=== PATIENT | female | born 1935 | race Caucasian/White ===

== ENCOUNTER → 2018-10-11 12:39 | Outpatient (CLI) | payer MEDICARE, SELFPAY | PROVIDERS: Family Provider Family Medicine; PCP Family Medicine; Visit Provider Family Medicine | DX: M85.88 Other specified disorders of bone density and structure, other site (principal); Z78.0 Asymptomatic menopausal state; Z82.62 Family history of osteoporosis; Z87.891 Personal history of nicotine dependence | CPT/HCPCS: 77080 ==

== ENCOUNTER → 2019-11-08 11:39 | Outpatient (CLI) | payer MEDICARE, SELFPAY ==
[2019-11-13 10:40] LABS: COVID19 Sendout Not Detected
== END ==
PROVIDERS: Family Provider Family Medicine; PCP Family Medicine; Visit Provider Physician Assistant
DX: Z03.818 Encounter for observation for suspected exposure to other biological agents ruled out (principal)
CPT/HCPCS: 87635

== ENCOUNTER 2020-01-23 15:15 | Outpatient (RCR) | payer MEDICARE, OTHER, SELFPAY ==
--- NOTE | 2019-12-13 19:00 | PT.OPPOC ---
Physical, Occupational & Speech Therapy At [facility] Current Diagnoses Pain in left knee (12/13/19) Visit Care Team Role Provider Type Charanjit Craig MD Attending Provider Physician Family Provider Primary Care Provider Referring Provider Specialty: Family Practice Address: [address] [place] [address] [place], [address] Email: [email or web address] Plan Of Care PT-OP-T Assessment and Plan Start: 12/13/19 15:16 Freq: Status: Active Protocol: Document 12/13/19 18:24 [facility] (Rec: 12/13/19 18:30 [facility] [email or web address]) Physical Therapy Assessment Goals Four Impairment Limited walking distance to 2 blocks Usp Goal (LTG) Amy is able to ambulate 1 mile from her house to [facility] safely and without increased pain LTG Duration 8 weeks Three Impairment Antalgic gait pattern with wide base of support and trendelenburg gait Document Imaging Specialist Goal (LTG) Amy has improved strength of the left hip and improved gait pattern putting her at decreased risk for falls LTG Duration 8 weeks Two Impairment decreased strength left knee Usp Goal (LTG) Amy tests 4/5 or better for left knee MMT LTG Duration 8 weeks One Impairment Decreased left knee ROM into extension Short Term Goal (STG) Amy demonstrates full knee ROM into extension of her left knee STG Duration 4 weeks Assessment Summary Assessment Amy presents to physical therapy today s/p left intra- articular knee BMAC injection on 11/29/19. She notes her pain levels have been reduced since her injection and now rates her pain 3-5/10. She reports she hasn't started any ROM exercises for her left knee yet so seeks guidance with physical therapy. At this point she is limited with walking to only a few blocks. She feels unsteady with her gait. Her goal is to be able to walk to [employer] [place] which is a mile away from her house. She also has extreme difficulty with stairs and would like to make this easier to perform. With examination today Amy lacks 5 degrees knee extension , she test 3/5 MMT for left knee strength, 2+/5 for hip extension and abduction. Amy ambulates with a wide base of support and a single point cane. She demonstrates a trendelenburg gait. Treatment will include knee ROM and strengthening exercises, hip strengthening exercises, gait and balance training. Amy is a good candidate for PT Physical Therapy Plan Frequency and Duration Frequency of Treatment 2x/Week Duration of Treatment 8 weeks Plan of Care Start Date 12/13/19 Plan of Care End Date 02/07/20 Therapeutic Interventions Therapeutic Interventions Balance Training,Home Exercise Program,Patient/Caregiver Education,Self-Care/Home Management,Therapeutic Exercises Modalities Cold Pack/Ice Massage Next Visit Focus/Plan Next Note Type Treatment Note Next Visit Plan begin on biodex for warm up, review exercises, STM left quad, begin balance training and gluteus medius stabilization Plan of Care Dates Plan of Care Start Date 12/13/19 Plan of Care End Date 02/07/20 Electronically Signed by: Olga Vásquez, PT 12/18/19 0831 Please Sign and Return: I have reviewed this Plan of Care and certify that the skilled therapy services above are required to meet the patient?s needs. Physician Signature Date Printed Name and Credentials Clinical Instructor Signature Printed Name and Credentials
--- NOTE | 2019-12-13 19:00 | PT.OIE ---
Current Diagnoses Pain in left knee (12/13/19) Visit Care Team Role Provider Type Charanjit Craig MD Attending Provider Physician Family Provider Primary Care Provider Referring Provider Specialty: Family Practice Address: [address] [address], [facility] [place], [facility] Email: [email or web address] Physical Therapy Initial Evaluation PT-OP-A Visit Information Start: 12/13/19 15:16 Freq: Status: Active Protocol: Document 12/13/19 15:16 [facility] (Rec: 12/13/19 15:28 [facility] [id number]) Out-Patient Physical Therapy Visit Information Visit Information Visit Type Initial Evaluation Visit Start Time 15:15 Visit Stop Time 16:00 Total Visit Minutes 45 Visit Number 1 Evaluation Information Evaluation Date 12/13/19 PT-OP-B Current Condition Start: 12/13/19 15:16 Freq: Status: Active Protocol: Document 12/13/19 15:16 [facility] (Rec: 12/13/19 15:28 [facility] [id number]) Current Condition History of Current Condition Onset Date 10 years ago Prior Treatments and Tests Stem cell injections November 28. Dr Wood. Stem cells were harvested from her left pelvis . She reports her knee feels better than it was before, now not using medication but using heat. Pain right now is a 3-5/10. Prior to the injection is was a 6-7/10. Uses a cane to ambulate. Her goal is to climb steps. She has 15 steps, her son is home now but she wants to get back to stairs. There is two railings. Walks about 3 blocks at this time but would like to walk farther. Has difficulty running the vacuum reed cleaner right now. Pt has a history of left sided inguinal hernia. She is carful about not lifting. Treatment Goals Patient/Caregiver Goals Carols goals include improved strength, ROM and pain control of her left knee. She would like to be able to walk a mile to her [employer] without pain Current Functional Impairments (Reported) Functional Limitations- Mobility/Gait limited distance with walking to only a few blocks, extreme difficulty with stairs, standing for a hour, and with lifting objects from the floor PT-OP-G Mobility & Gait Start: 12/13/19 15:16 Freq: Status: Active Protocol: Document 12/13/19 15:15 [facility] (Rec: 12/18/19 08:30 [facility] [email or web address]) OP Gait Assessment Assistive Devices Assistive Device Straight Cane Gait Deviations General Gait Pattern Antalgic Factors Limiting Gait Function Factors Limiting Gait Function Decreased Strength,Poor Balance Comments Gait Comments gluteus medius drop with gait and wide base of support PT-OP-K Range of Motion Start: 12/13/19 15:16 Freq: Status: Active Protocol: Document 12/13/19 15:15 [facility] (Rec: 12/18/19 08:29 [facility] [email or web address]) Knee Goniometric Range of Motion Knee Left Knee ROM WFL No Extension Active (degrees) 5 PT-OP-M Strength Start: 12/13/19 15:16 Freq: Status: Active Protocol: Document 12/13/19 18:14 [facility] (Rec: 12/13/19 18:23 [facility] [email or web address]) Hip Strength Hip Manual Muscle Testing Right Flexion (L2) 4 Good Abduction 3 Fair Left Flexion (L2) 3 Fair Extension (S1) 3 Fair Abduction 2+ Poor+ Knee Strength Knee Manual Muscle Testing Right Flexion (S2) 4 Good Extension (L3) 4 Good Left Flexion (S2) 3 Fair Extension (L3) 3 Fair PT-OP-Q Treatments Start: 12/13/19 15:35 Freq: Status: Active Protocol: Document 12/13/19 15:35 [facility] (Rec: 12/13/19 15:42 [facility] [id number]) Cardio Equipment Recumbent Elliptical ([employer]s) Duration (Minutes) 5 Resistance 0 Therapeutic Exercises Supine Exercises 1 Supine Exercise Name single knee to chest with active hamstring stretch Reps/Minutes x 5 times each side. single knee to ches Reps/Minutes x 30 seconds hold heel slides Reps/Minutes x 10 reps PT-OP-T Assessment and Plan Start: 12/13/19 15:16 Freq: Status: Active Protocol: Document 12/13/19 18:24 [facility] (Rec: 12/13/19 18:30 [facility] [email or web address]) Physical Therapy Assessment Goals Four Impairment Limited walking distance to 2 blocks Artificial Inseminator Goal (LTG) Amy is able to ambulate 1 mile from her house to [facility] safely and without increased pain LTG Duration 8 weeks Three Impairment Antalgic gait pattern with wide base of support and trendelenburg gait Artificial Inseminator Goal (LTG) Amy has improved strength of the left hip and improved gait pattern putting her at decreased risk for falls LTG Duration 8 weeks Two Impairment decreased strength left knee Penitentiary Goal (LTG) Amy tests 4/5 or better for left knee MMT LTG Duration 8 weeks One Impairment Decreased left knee ROM into extension Short Term Goal (STG) Amy demonstrates full knee ROM into extension of her left knee STG Duration 4 weeks Assessment Summary Assessment Amy presents to physical therapy today s/p left intra- articular knee BMAC injection on 11/29/19. She notes her pain levels have been reduced since her injection and now rates her pain 3-5/10. She reports she hasn't started any ROM exercises for her left knee yet so seeks guidance with physical therapy. At this point she is limited with walking to only a few blocks. She feels unsteady with her gait. Her goal is to be able to walk to [employer] which is a mile away from her house. She also has extreme difficulty with stairs and would like to make this easier to perform. With examination today Amy lacks 5 degrees knee extension , she test 3/5 MMT for left knee strength, 2+/5 for hip extension and abduction. Amy ambulates with a wide base of support and a single point cane. She demonstrates a trendelenburg gait. Treatment will include knee ROM and strengthening exercises, hip strengthening exercises, gait and balance training. Amy is a good candidate for PT Physical Therapy Plan Frequency and Duration Frequency of Treatment 2x/Week Duration of Treatment 8 weeks Plan of Care Start Date 12/13/19 Plan of Care End Date 02/07/20 Therapeutic Interventions Therapeutic Interventions Balance Training,Home Exercise Program,Patient/Caregiver Education,Self-Care/Home Management,Therapeutic Exercises Modalities Cold Pack/Ice Massage Next Visit Focus/Plan Next Note Type Treatment Note Next Visit Plan begin on biodex for warm up, review exercises, STM left quad, begin balance training and gluteus medius stabilization
--- NOTE | 2019-12-18 18:56 | PT.OTN ---
Current Diagnoses Pain in left knee (12/18/19) Physical Therapy Treatment Note PT-OP-A Visit Information Start: 12/13/19 15:16 Freq: Status: Active Protocol: Document 12/18/19 18:51 [facility] (Rec: 12/18/19 18:55 [facility] [id number]) Out-Patient Physical Therapy Visit Information Visit Information Visit Type Treatment Note Visit Start Time 11:15 Visit Stop Time 12:00 Total Visit Minutes 45 Visit Number 2 PT-OP-B Current Condition Start: 12/13/19 15:16 Freq: Status: Active Protocol: Document 12/13/19 15:16 [facility] (Rec: 12/13/19 15:28 [facility] [id number]) Current Condition History of Current Condition Onset Date 10 years ago Prior Treatments and Tests Stem cell injections November 28. Dr Wood and Dr Miranda ordered . Stem cells were harvested from her left pelvis . She reports her knee fels better than it was before, now not using medication but using heat. Pain right now is a 3-5/10. Prior to the injection is was a 6-7/10. Uses a cane to ambulate. Her goal is to climb steps. She has 15 steps, her son is home now but she wants to get back to stairs. There is two railings. Walks about 3 blocks at this time but would like to walk farther. Has difficulty running the [employer] right now. Pt has a history of left sided inguinal hernia. She is carful about not lifting. Treatment Goals Patient/Caregiver Goals Carols goals include improved strength, ROM and pain control of her left knee. She would like to be able to walk a mile to her [employer] without pain Current Functional Impairments (Reported) Functional Limitations- Mobility/Gait limited distance with walking to only a few blocks, extreme dificulty with stairs, standing for a hour, and with lifting objects from the floor PT-OP-C Subjective Start: 12/13/19 15:16 Freq: Status: Active Protocol: Document 12/18/19 18:55 [facility] (Rec: 12/18/19 18:56 [facility] [email or web address]) OP-PT Subjective Patient Comments Patient Comments pt reports she has been doing her exercises. She took a fall when she slid off her seated walker this past week onto her buttocks. No c/o pain today Patient Reported Progress Improving PT-OP-G Mobility & Gait Start: 12/13/19 15:16 Freq: Status: Active Protocol: Document 12/13/19 15:15 [facility] (Rec: 12/18/19 08:30 [facility] [email or web address]) OP Gait Assessment Assistive Devices Assistive Device Straight Cane Gait Deviations General Gait Pattern Antalgic Factors Limiting Gait Function Factors Limiting Gait Function Decreased Strength,Poor Balance Comments Gait Comments gluteus medius drop with gait and wide base of support PT-OP-K Range of Motion Start: 12/13/19 15:16 Freq: Status: Active Protocol: Document 12/13/19 15:15 [facility] (Rec: 12/18/19 08:29 [facility] [email or web address]) Knee Goniometric Range of Motion Knee Left Knee ROM WFL No Extension Active (degrees) 5 PT-OP-M Strength Start: 12/13/19 15:16 Freq: Status: Active Protocol: Document 12/13/19 18:14 [facility] (Rec: 12/13/19 18:23 [facility] [email or web address]) Hip Strength Hip Manual Muscle Testing Right Flexion (L2) 4 Good Abduction 3 Fair Left Flexion (L2) 3 Fair Extension (S1) 3 Fair Abduction 2+ Poor+ Knee Strength Knee Manual Muscle Testing Right Flexion (S2) 4 Good Extension (L3) 4 Good Left Flexion (S2) 3 Fair Extension (L3) 3 Fair PT-OP-Q Treatments Start: 12/13/19 15:35 Freq: Status: Active Protocol: Document 12/18/19 18:51 [facility] (Rec: 12/18/19 18:55 [facility] [email or web address]) Cardio Equipment Recumbent Elliptical (Biodex) Duration (Minutes) 5 Resistance 0 Therapeutic Exercises Supine Exercises bridges Supine Exercise Name bridges Reps/Minutes x 10 quads sets Supine Exercise Name quad sets Reps/Minutes x 10 reps 2 Supine Exercise Name iliopsoas stretch in ebony test position 1 Supine Exercise Name single knee to chest with active hamstring stretch Reps/Minutes x 5 times each side. heel slides Reps/Minutes x 10 reps Sidelying Exercises 1 Sidelying Exercise Name clam shells Reps/Minutes 2 x 10 Manual Therapy Treatment Soft Tissue Mobilization 1 Body Location STM over the left quad Comments used the therarollar for STM PT-OP-T Assessment and Plan Start: 12/13/19 15:16 Freq: Status: Active Protocol: Document 12/18/19 18:51 [facility] (Rec: 12/18/19 18:55 [facility] [email or web address]) Physical Therapy Assessment Assessment Summary Assessment good tolerance for ther ex today and improved knee extension to full ROM Physical Therapy Plan Frequency and Duration Frequency of Treatment 2x/Week Duration of Treatment 8 weeks Plan of Care Start Date 12/13/19 Plan of Care End Date 02/07/20
--- NOTE | 2019-12-20 17:37 | PT.OTN ---
Current Diagnoses Pain in left knee (12/20/19) Physical Therapy Treatment Note PT-OP-A Visit Information Start: 12/13/19 15:16 Freq: Status: Active Protocol: Document 12/20/19 17:26 [facility] (Rec: 12/20/19 17:37 [facility] [email or web address]) Out-Patient Physical Therapy Visit Information Visit Information Visit Type Treatment Note Visit Start Time 15:15 Visit Stop Time 16:00 Total Visit Minutes 45 Visit Number 3 PT-OP-B Current Condition Start: 12/13/19 15:16 Freq: Status: Active Protocol: Document 12/13/19 15:16 [facility] (Rec: 12/13/19 15:28 [facility] [id number]) Current Condition History of Current Condition Onset Date 10 years ago Prior Treatments and Tests Stem cell injections November 28. Dr Wood and Dr Miranda ordered . Stem cells were harvested from her left pelvis . She reports her knee fels better than it was before, now not using medication but using heat. Pain right now is a 3-5/10. Prior to the injection is was a 6-7/10. Uses a cane to ambulate. Her goal is to climb steps. She has 15 steps, her son is home now but she wants to get back to stairs. There is two railings. Walks about 3 blocks at this time but would like to walk farther. Has difficulty running the [employer] right now. Pt has a history of left sided inguinal hernia. She is carful about not lifting. Treatment Goals Patient/Caregiver Goals Carols goals include improved strength, ROM and pain control of her left knee. She would like to be able to walk a mile to her adventist without pain Current Functional Impairments (Reported) Functional Limitations- Mobility/Gait limited distance with walking to only a few blocks, extreme dificulty with stairs, standing for a hour, and with lifting objects from the floor PT-OP-C Subjective Start: 12/13/19 15:16 Freq: Status: Active Protocol: Document 12/20/19 17:26 [facility] (Rec: 12/20/19 17:37 [facility] [email or web address]) OP-PT Subjective Patient Comments Patient Comments pt reports she tolerated treatement well last visit. She is more fatigued at this late in the day. PT-OP-G Mobility & Gait Start: 12/13/19 15:16 Freq: Status: Active Protocol: Document 12/13/19 15:15 [facility] (Rec: 12/18/19 08:30 [facility] [email or web address]) OP Gait Assessment Assistive Devices Assistive Device Straight Cane Gait Deviations General Gait Pattern Antalgic Factors Limiting Gait Function Factors Limiting Gait Function Decreased Strength,Poor Balance Comments Gait Comments gluteus medius drop with gait and wide base of support PT-OP-K Range of Motion Start: 12/13/19 15:16 Freq: Status: Active Protocol: Document 12/13/19 15:15 [facility] (Rec: 12/18/19 08:29 [facility] [email or web address]) Knee Goniometric Range of Motion Knee Left Knee ROM WFL No Extension Active (degrees) 5 PT-OP-M Strength Start: 12/13/19 15:16 Freq: Status: Active Protocol: Document 12/13/19 18:14 [facility] (Rec: 12/13/19 18:23 [facility] [email or web address]) Hip Strength Hip Manual Muscle Testing Right Flexion (L2) 4 Good Abduction 3 Fair Left Flexion (L2) 3 Fair Extension (S1) 3 Fair Abduction 2+ Poor+ Knee Strength Knee Manual Muscle Testing Right Flexion (S2) 4 Good Extension (L3) 4 Good Left Flexion (S2) 3 Fair Extension (L3) 3 Fair PT-OP-Q Treatments Start: 12/13/19 15:35 Freq: Status: Active Protocol: Document 12/20/19 17:26 [facility] (Rec: 12/20/19 17:37 [facility] [email or web address]) Cardio Equipment Recumbent Elliptical (Biodex) Duration (Minutes) 5 Resistance 0 Gym Equipment Shuttle Recovery Bilateral Squats Details bilateral squats Resistance 25# Reps/Time 3 x 10 reps Therapeutic Exercises Supine Exercises 3 Supine Exercise Name Manual Hamstring stretch with ankle pumps Reps/Minutes 2 x 30 seconds bridges Supine Exercise Name bridges Reps/Minutes 2 x 10 quads sets Supine Exercise Name quad sets Reps/Minutes x 10 reps left knee Comments with towel under left knee 2 Supine Exercise Name iliopsoas stretch in ebony test position 1 Supine Exercise Name single knee to chest with active hamstring stretch Reps/Minutes x 5 times each side. heel slides Supine Exercise Name heel slides Reps/Minutes x 10 reps Sidelying Exercises 1 Sidelying Exercise Name clam shells Reps/Minutes 2 x 10 Sitting Exercises 1 Sitting Exercise Name seated TKE Reps/Minutes x 15 reps left Standing Exercises 4 Standing Exercise Name step ups on 4 step Comments pt reports pain in left knee after 5 reps so ex stopped 3 Standing Exercise Name single leg balance Reps/Minutes 15 sec x 2 B 2 Standing Exercise Name standing 3 way hip Reps/Minutes x 15 each Comments marches, abduction, hip extension 1 Standing Exercise Name standing ONDINA calf stretch Reps/Minutes static and dynamic Manual Therapy Treatment Soft Tissue Mobilization 1 Body Location STM over the left quad Comments used the therarollar for STM PT-OP-T Assessment and Plan Start: 12/13/19 15:16 Freq: Status: Active Protocol: Document 12/20/19 17:26 [facility] (Rec: 12/20/19 17:37 [facility] [email or web address]) Physical Therapy Assessment Assessment Summary Assessment Pt was fatigued with appointment being later in the day. She is tolerating all the exercises and stretching for her left knee really well. Her goal is to increase her walking distance to a mile and be able to climb up the stairs in her adventist. There is no rail with the stairs in the adventist. She has tight hip flexors B and I am trying to help her loosen these to help her gait and balance. Step ups were attempted today but made her left knee too sore so they were stopped Physical Therapy Plan Frequency and Duration Frequency of Treatment 2x/Week Duration of Treatment 8 weeks Plan of Care Start Date 12/13/19 Plan of Care End Date 02/07/20 Therapeutic Interventions Therapeutic Interventions Balance Training,Home Exercise Program,Patient/Caregiver Education,Self-Care/Home Management,Therapeutic Exercises Modalities Cold Pack/Ice Massage Next Visit Focus/Plan Next Note Type Treatment Note Next Visit Plan continue to progress left knee strengthening, stretching the quad, hamstrings, and hip flexors, gait and balance training
--- NOTE | 2019-12-27 14:49 | PT.OTN ---
Current Diagnoses Pain in left knee (12/27/19) Physical Therapy Treatment Note PT-OP-A Visit Information Start: 12/13/19 15:16 Freq: Status: Active Protocol: Document 12/27/19 12:47 [facility] (Rec: 12/27/19 12:47 [facility] [email or web address]) Out-Patient Physical Therapy Visit Information Visit Information Visit Type Treatment Note Visit Start Time 12:45 Visit Stop Time 13:30 Total Visit Minutes 45 Visit Number 4 Evaluation Information Evaluation Date 12/13/19 PT-OP-B Current Condition Start: 12/13/19 15:16 Freq: Status: Active Protocol: Document 12/13/19 15:16 [facility] (Rec: 12/13/19 15:28 [facility] [id number]) Current Condition History of Current Condition Onset Date 10 years ago Prior Treatments and Tests Stem cell injections November 28. Dr Wood and Dr Miranda ordered . Stem cells were harvested from her left pelvis . She reports her knee fels better than it was before, now not using medication but using heat. Pain right now is a 3-5/10. Prior to the injection is was a 6-7/10. Uses a cane to ambulate. Her goal is to climb steps. She has 15 steps, her son is home now but she wants to get back to stairs. There is two railings. Walks about 3 blocks at this time but would like to walk farther. Has difficulty running the [employer] right now. Pt has a history of left sided inguinal hernia. She is carful about not lifting. Treatment Goals Patient/Caregiver Goals [place] goals include improved strength, ROM and pain control of her left knee. She would like to be able to walk a mile to her confucianist without pain Current Functional Impairments (Reported) Functional Limitations- Mobility/Gait limited distance with walking to only a few blocks, extreme dificulty with stairs, standing for a hour, and with lifting objects from the floor PT-OP-C Subjective Start: 12/13/19 15:16 Freq: Status: Active Protocol: Document 12/27/19 12:45 [facility] (Rec: 12/27/19 14:48 [facility] [email or web address]) OP-PT Subjective Patient Comments Patient Comments Amy reports she is tolerating her exercises well at home except the single leg balance on the left. This causes pain so she has stopped this one. PT-OP-G Mobility & Gait Start: 12/13/19 15:16 Freq: Status: Active Protocol: Document 12/13/19 15:15 [facility] (Rec: 12/18/19 08:30 [facility] [email or web address]) OP Gait Assessment Assistive Devices Assistive Device Straight Cane Gait Deviations General Gait Pattern Antalgic Factors Limiting Gait Function Factors Limiting Gait Function Decreased Strength,Poor Balance Comments Gait Comments gluteus medius drop with gait and wide base of support PT-OP-K Range of Motion Start: 12/13/19 15:16 Freq: Status: Active Protocol: Document 12/13/19 15:15 [facility] (Rec: 12/18/19 08:29 [facility] [email or web address]) Knee Goniometric Range of Motion Knee Left Knee ROM WFL No Extension Active (degrees) 5 PT-OP-M Strength Start: 12/13/19 15:16 Freq: Status: Active Protocol: Document 12/13/19 18:14 [facility] (Rec: 12/13/19 18:23 [facility] [email or web address]) Hip Strength Hip Manual Muscle Testing Right Flexion (L2) 4 Good Abduction 3 Fair Left Flexion (L2) 3 Fair Extension (S1) 3 Fair Abduction 2+ Poor+ Knee Strength Knee Manual Muscle Testing Right Flexion (S2) 4 Good Extension (L3) 4 Good Left Flexion (S2) 3 Fair Extension (L3) 3 Fair PT-OP-Q Treatments Start: 12/13/19 15:35 Freq: Status: Active Protocol: Document 12/27/19 12:45 [facility] (Rec: 12/27/19 14:48 [facility] [email or web address]) Cardio Equipment Recumbent Elliptical (Biodex) Duration (Minutes) 5 Resistance 0 Gym Equipment Shuttle Recovery Unilateral Squats Details unilateral squats Resistance 25 # Reps/Time x 10 reps Bilateral Squats Details bilateral squats Resistance 37# Reps/Time 3 x 10 reps Therapeutic Exercises Supine Exercises 3 Supine Exercise Name Manual Hamstring stretch with ankle pumps Reps/Minutes 2 x 30 seconds bridges Supine Exercise Name bridges Reps/Minutes 2 x 10 quads sets Supine Exercise Name quad sets Reps/Minutes x 10 reps left knee Comments with towel under left knee 2 Supine Exercise Name iliopsoas stretch in ebony test position single knee to ches Supine Exercise Name single knee to chest Reps/Minutes x 30 seconds hold heel slides Supine Exercise Name heel slides Reps/Minutes x 10 reps Standing Exercises 5 Standing Exercise Name side steps in the parallel bars Reps/Minutes 4 reps down and back the length of the parallel bars 3 Standing Exercise Name single leg balance Reps/Minutes 15 sec x 2 B 2 Standing Exercise Name standing 3 way hip Reps/Minutes x 15 each Comments marches, abduction, hip extension 1 Standing Exercise Name standing ONDINA calf stretch Reps/Minutes static and dynamic Manual Therapy Treatment Soft Tissue Mobilization 1 Body Location STM over the left quad Comments used the therarollar for STM PT-OP-T Assessment and Plan Start: 12/13/19 15:16 Freq: Status: Active Protocol: Document 12/27/19 12:45 [facility] (Rec: 12/27/19 14:48 [facility] [email or web address]) Physical Therapy Assessment Assessment Summary Assessment Amy did much better today with her appointment in the early afternoon. I tried using the thera band around Huber thighs for side steps but it made her valgus angle much worse so it was removed. She does better with single leg stance with a slight bend in her knee. Physical Therapy Plan Frequency and Duration Frequency of Treatment 2x/Week Duration of Treatment 8 weeks Plan of Care Start Date 12/13/19 Plan of Care End Date 02/07/20 Therapeutic Interventions Therapeutic Interventions Balance Training,Home Exercise Program,Patient/Caregiver Education,Self-Care/Home Management,Therapeutic Exercises Modalities Cold Pack/Ice Massage Next Visit Focus/Plan Next Note Type Treatment Note Next Visit Plan continue to progress left knee strengthening, stretching the quad, hamstrings, and hip flexors, gait and balance training. Amy's goals include being able to walk to confucianist from her house.
--- NOTE | 2020-01-03 13:35 | PT.OTN ---
Current Diagnoses Pain in left knee (01/02/20) Physical Therapy Treatment Note PT-OP-A Visit Information Start: 12/13/19 15:16 Freq: Status: Active Protocol: Document 01/02/20 13:09 [facility] (Rec: 01/02/20 13:39 [facility] [id number]) Out-Patient Physical Therapy Visit Information Visit Information Visit Type Treatment Note Visit Start Time 13:00 Visit Stop Time 13:45 Total Visit Minutes 45 Visit Number 5 PT-OP-B Current Condition Start: 12/13/19 15:16 Freq: Status: Active Protocol: Document 12/13/19 15:16 [facility] (Rec: 12/13/19 15:28 [facility] [id number]) Current Condition History of Current Condition Onset Date 10 years ago Prior Treatments and Tests Stem cell injections November 28. Dr Wood and Dr Miranda ordered . Stem cells were harvested from her left pelvis . She reports her knee fels better than it was before, now not using medication but using heat. Pain right now is a 3-5/10. Prior to the injection is was a 6-7/10. Uses a cane to ambulate. Her goal is to climb steps. She has 15 steps, her son is home now but she wants to get back to stairs. There is two railings. Walks about 3 blocks at this time but would like to walk farther. Has difficulty running the [employer] right now. Pt has a history of left sided inguinal hernia. She is carful about not lifting. Treatment Goals Patient/Caregiver Goals Carols goals include improved strength, ROM and pain control of her left knee. She would like to be able to walk a mile to her mormonism without pain Current Functional Impairments (Reported) Functional Limitations- Mobility/Gait limited distance with walking to only a few blocks, extreme dificulty with stairs, standing for a hour, and with lifting objects from the floor PT-OP-C Subjective Start: 12/13/19 15:16 Freq: Status: Active Protocol: Document 01/02/20 13:09 [facility] (Rec: 01/02/20 13:39 [facility] [id number]) OP-PT Subjective Patient Comments Patient Comments pt reports her knee pain is decreased and her pain levels are /20 now PT-OP-G Mobility & Gait Start: 12/13/19 15:16 Freq: Status: Active Protocol: Document 12/13/19 15:15 [facility] (Rec: 12/18/19 08:30 [facility] [email or web address]) OP Gait Assessment Assistive Devices Assistive Device Straight Cane Gait Deviations General Gait Pattern Antalgic Factors Limiting Gait Function Factors Limiting Gait Function Decreased Strength,Poor Balance Comments Gait Comments gluteus medius drop with gait and wide base of support PT-OP-K Range of Motion Start: 12/13/19 15:16 Freq: Status: Active Protocol: Document 12/13/19 15:15 [facility] (Rec: 12/18/19 08:29 [facility] [email or web address]) Knee Goniometric Range of Motion Knee Left Knee ROM WFL No Extension Active (degrees) 5 PT-OP-M Strength Start: 12/13/19 15:16 Freq: Status: Active Protocol: Document 12/13/19 18:14 [facility] (Rec: 12/13/19 18:23 [facility] [email or web address]) Hip Strength Hip Manual Muscle Testing Right Flexion (L2) 4 Good Abduction 3 Fair Left Flexion (L2) 3 Fair Extension (S1) 3 Fair Abduction 2+ Poor+ Knee Strength Knee Manual Muscle Testing Right Flexion (S2) 4 Good Extension (L3) 4 Good Left Flexion (S2) 3 Fair Extension (L3) 3 Fair PT-OP-Q Treatments Start: 12/13/19 15:35 Freq: Status: Active Protocol: Document 01/02/20 13:09 [facility] (Rec: 01/02/20 13:39 [facility] [id number]) Cardio Equipment Recumbent Elliptical (Biodex) Duration (Minutes) 5 Resistance 0 Gym Equipment Cable Column (Body Solid) Hip Abduction Resistance 10 Reps/Time 3 x 10 reps Shuttle Recovery Unilateral Squats Details unilateral squats Resistance 25 # Reps/Time x 10 reps Bilateral Squats Details bilateral squats Resistance 37# Reps/Time 3 x 10 reps Therapeutic Exercises Supine Exercises 3 Supine Exercise Name Manual Hamstring stretch with ankle pumps Reps/Minutes 2 x 30 seconds bridges Supine Exercise Name bridges Reps/Minutes 2 x 10 quads sets Supine Exercise Name quad sets Reps/Minutes x 10 reps left knee Comments with towel under left knee 2 Supine Exercise Name iliopsoas stretch in ebony test position 1 Supine Exercise Name single knee to chest with active hamstring stretch Reps/Minutes x 5 times each side. single knee to ches Supine Exercise Name single knee to chest Reps/Minutes x 30 seconds hold heel slides Supine Exercise Name heel slides Reps/Minutes x 10 reps Sidelying Exercises 1 Sidelying Exercise Name clam shells Reps/Minutes 2 x 10 Sitting Exercises 1 Sitting Exercise Name seated TKE Reps/Minutes x 15 reps left Standing Exercises 5 Standing Exercise Name side steps in the parallel bars Reps/Minutes 4 reps down and back the length of the parallel bars 4 Standing Exercise Name step ups on 4 step Comments pt reports pain in left knee after 5 reps so ex stopped 3 Standing Exercise Name single leg balance Reps/Minutes 15 sec x 2 B 2 Standing Exercise Name standing 3 way hip Reps/Minutes x 15 each Comments marches, abduction, hip extension 1 Standing Exercise Name standing ONDINA calf stretch Reps/Minutes static and dynamic PT-OP-T Assessment and Plan Start: 12/13/19 15:16 Freq: Status: Active Protocol: Document 01/02/20 13:09 [facility] (Rec: 01/02/20 13:39 [facility] [id number]) Physical Therapy Assessment Assessment Summary Assessment pt came in today walking without her cane. She states she left it in the shopping cart at the [facility] . I talked to her daughter about purchasing a cane for outside use as she still would benefit from that extra support Physical Therapy Plan Frequency and Duration Frequency of Treatment 2x/Week Duration of Treatment 8 weeks Plan of Care Start Date 12/13/19 Plan of Care End Date 02/07/20 Next Visit Focus/Plan Next Note Type Treatment Note Next Visit Plan continue to progress left knee strengthening, stretching the quad, hamstrings, and hip flexors, gait and balance training. Amy's goals include being able to walk to mormonism from her house.
--- NOTE | 2020-01-04 18:02 | PT.OTN ---
Current Diagnoses Pain in left knee (01/04/20) Physical Therapy Treatment Note PT-OP-A Visit Information Start: 12/13/19 15:16 Freq: Status: Active Protocol: Document 01/04/20 13:00 [facility] (Rec: 01/04/20 13:46 [facility] [id number]) Out-Patient Physical Therapy Visit Information Visit Information Visit Type Treatment Note Visit Start Time 13:00 Visit Stop Time 13:45 Total Visit Minutes 45 Visit Number 6 PT-OP-B Current Condition Start: 12/13/19 15:16 Freq: Status: Active Protocol: Document 12/13/19 15:16 [facility] (Rec: 12/13/19 15:28 [facility] [id number]) Current Condition History of Current Condition Onset Date 10 years ago Prior Treatments and Tests Stem cell injections November 28. Dr Wood and Dr Miranda ordered . Stem cells were harvested from her left pelvis . She reports her knee fels better than it was before, now not using medication but using heat. Pain right now is a 3-5/10. Prior to the injection is was a 6-7/10. Uses a cane to ambulate. Her goal is to climb steps. She has 15 steps, her son is home now but she wants to get back to stairs. There is two railings. Walks about 3 blocks at this time but would like to walk farther. Has difficulty running the [employer] right now. Pt has a history of left sided inguinal hernia. She is carful about not lifting. Treatment Goals Patient/Caregiver Goals Carols goals include improved strength, ROM and pain control of her left knee. She would like to be able to walk a mile to her hinduism without pain Current Functional Impairments (Reported) Functional Limitations- Mobility/Gait limited distance with walking to only a few blocks, extreme dificulty with stairs, standing for a hour, and with lifting objects from the floor PT-OP-C Subjective Start: 12/13/19 15:16 Freq: Status: Active Protocol: Document 01/04/20 13:00 [facility] (Rec: 01/04/20 13:46 [facility] [id number]) OP-PT Subjective Patient Comments Patient Comments Amy brings in her new cane today for treatment. PT-OP-G Mobility & Gait Start: 12/13/19 15:16 Freq: Status: Active Protocol: Document 12/13/19 15:15 [facility] (Rec: 12/18/19 08:30 [facility] [email or web address]) OP Gait Assessment Assistive Devices Assistive Device Straight Cane Gait Deviations General Gait Pattern Antalgic Factors Limiting Gait Function Factors Limiting Gait Function Decreased Strength,Poor Balance Comments Gait Comments gluteus medius drop with gait and wide base of support PT-OP-K Range of Motion Start: 12/13/19 15:16 Freq: Status: Active Protocol: Document 12/13/19 15:15 [facility] (Rec: 12/18/19 08:29 [facility] [email or web address]) Knee Goniometric Range of Motion Knee Left Knee ROM WFL No Extension Active (degrees) 5 PT-OP-M Strength Start: 12/13/19 15:16 Freq: Status: Active Protocol: Document 12/13/19 18:14 [facility] (Rec: 12/13/19 18:23 [facility] [email or web address]) Hip Strength Hip Manual Muscle Testing Right Flexion (L2) 4 Good Abduction 3 Fair Left Flexion (L2) 3 Fair Extension (S1) 3 Fair Abduction 2+ Poor+ Knee Strength Knee Manual Muscle Testing Right Flexion (S2) 4 Good Extension (L3) 4 Good Left Flexion (S2) 3 Fair Extension (L3) 3 Fair PT-OP-Q Treatments Start: 12/13/19 15:35 Freq: Status: Active Protocol: Document 01/04/20 13:00 [facility] (Rec: 01/04/20 13:46 [facility] [id number]) Cardio Equipment Recumbent Elliptical (Biodex) Duration (Minutes) 5 Resistance 0 Gym Equipment Cable Column (Body Solid) Hip Abduction Resistance 10 Reps/Time 3 x 10 reps Shuttle Recovery Unilateral Squats Details unilateral squats Resistance 25 # Reps/Time x 10 reps Bilateral Squats Details bilateral squats Resistance 37# Reps/Time 3 x 10 reps Therapeutic Exercises Supine Exercises 3 Supine Exercise Name Manual Hamstring stretch with ankle pumps Reps/Minutes 2 x 30 seconds bridges Supine Exercise Name bridges Reps/Minutes 2 x 10 quads sets Supine Exercise Name quad sets Reps/Minutes x 10 reps left knee Comments with towel under left knee 2 Supine Exercise Name iliopsoas stretch in ebony test position 1 Supine Exercise Name single knee to chest with active hamstring stretch Reps/Minutes x 5 times each side. single knee to ches Supine Exercise Name single knee to chest heel slides Supine Exercise Name heel slides Reps/Minutes x 10 reps Sidelying Exercises 1 Sidelying Exercise Name clam shells Reps/Minutes 2 x 10 Sitting Exercises 1 Sitting Exercise Name seated TKE Reps/Minutes x 15 reps left Standing Exercises 5 Standing Exercise Name side steps in the parallel bars Reps/Minutes 4 reps down and back the length of the parallel bars 4 Standing Exercise Name step ups on 4 step Comments pt reports pain in left knee after 5 reps so ex stopped 3 Standing Exercise Name single leg balance Reps/Minutes 15 sec x 2 B 2 Standing Exercise Name standing 3 way hip Reps/Minutes x 15 each Comments marches, abduction, hip extension 1 Standing Exercise Name standing ONDINA calf stretch Reps/Minutes static and dynamic PT-OP-T Assessment and Plan Start: 12/13/19 15:16 Freq: Status: Active Protocol: Document 01/04/20 14:37 [facility] (Rec: 01/04/20 14:39 [facility] [email or web address]) Physical Therapy Assessment Assessment Summary Assessment added a balancing on uneven surface on foam block today as well as balance board balance . Amy tolerated well but then began c/o medial knee pain so this was stopped. She is doing better with balance but has a limited endurance for weight bearing through her left knee Physical Therapy Plan Frequency and Duration Frequency of Treatment 2x/Week Duration of Treatment 8 weeks Plan of Care Start Date 12/13/19 Plan of Care End Date 02/07/20 Therapeutic Interventions Therapeutic Interventions Balance Training,Home Exercise Program,Patient/Caregiver Education,Self-Care/Home Management,Therapeutic Exercises Modalities Cold Pack/Ice Massage Next Visit Focus/Plan Next Note Type Treatment Note Next Visit Plan continue to progress left knee strengthening, stretching the quad, hamstrings, and hip flexors, gait and balance training. Amy's goals include being able to walk to hinduism from her house.
--- NOTE | 2020-01-09 17:43 | PT.OTN ---
Current Diagnoses Pain in left knee (01/09/20) Physical Therapy Treatment Note PT-OP-A Visit Information Start: 12/13/19 15:16 Freq: Status: Active Protocol: Document 01/09/20 13:07 [facility] (Rec: 01/09/20 13:11 [facility] [id number]) Out-Patient Physical Therapy Visit Information Visit Information Visit Type Treatment Note Visit Start Time 13:00 Visit Stop Time 13:45 Total Visit Minutes 45 Visit Number 7 PT-OP-B Current Condition Start: 12/13/19 15:16 Freq: Status: Active Protocol: Document 12/13/19 15:16 [facility] (Rec: 12/13/19 15:28 [facility] [id number]) Current Condition History of Current Condition Onset Date 10 years ago Prior Treatments and Tests Stem cell injections November 28. Dr Wood and Dr Miranda ordered . Stem cells were harvested from her left pelvis . She reports her knee fels better than it was before, now not using medication but using heat. Pain right now is a 3-5/10. Prior to the injection is was a 6-7/10. Uses a cane to ambulate. Her goal is to climb steps. She has 15 steps, her son is home now but she wants to get back to stairs. There is two railings. Walks about 3 blocks at this time but would like to walk farther. Has difficulty running the [employer] right now. Pt has a history of left sided inguinal hernia. She is carful about not lifting. Treatment Goals Patient/Caregiver Goals Carols goals include improved strength, ROM and pain control of her left knee. She would like to be able to walk a mile to her temple without pain Current Functional Impairments (Reported) Functional Limitations- Mobility/Gait limited distance with walking to only a few blocks, extreme dificulty with stairs, standing for a hour, and with lifting objects from the floor PT-OP-C Subjective Start: 12/13/19 15:16 Freq: Status: Active Protocol: Document 01/09/20 13:07 [facility] (Rec: 01/09/20 13:11 [facility] [id number]) OP-PT Subjective Patient Comments Patient Comments pt has been up and working on her house a lot. She states she hasd been very active as she is refinishing her cabnets . PT-OP-G Mobility & Gait Start: 12/13/19 15:16 Freq: Status: Active Protocol: Document 12/13/19 15:15 [facility] (Rec: 12/18/19 08:30 [facility] [email or web address]) OP Gait Assessment Assistive Devices Assistive Device Straight Cane Gait Deviations General Gait Pattern Antalgic Factors Limiting Gait Function Factors Limiting Gait Function Decreased Strength,Poor Balance Comments Gait Comments gluteus medius drop with gait and wide base of support PT-OP-K Range of Motion Start: 12/13/19 15:16 Freq: Status: Active Protocol: Document 12/13/19 15:15 [facility] (Rec: 12/18/19 08:29 [facility] [email or web address]) Knee Goniometric Range of Motion Knee Left Knee ROM WFL No Extension Active (degrees) 5 PT-OP-M Strength Start: 12/13/19 15:16 Freq: Status: Active Protocol: Document 12/13/19 18:14 [facility] (Rec: 12/13/19 18:23 [facility] [email or web address]) Hip Strength Hip Manual Muscle Testing Right Flexion (L2) 4 Good Abduction 3 Fair Left Flexion (L2) 3 Fair Extension (S1) 3 Fair Abduction 2+ Poor+ Knee Strength Knee Manual Muscle Testing Right Flexion (S2) 4 Good Extension (L3) 4 Good Left Flexion (S2) 3 Fair Extension (L3) 3 Fair PT-OP-Q Treatments Start: 12/13/19 15:35 Freq: Status: Active Protocol: Document 01/09/20 13:07 [facility] (Rec: 01/09/20 13:11 [facility] [id number]) Cardio Equipment Recumbent Elliptical (Biodex) Duration (Minutes) 5 Resistance 0 Gym Equipment Cable Column (Body Solid) Hip Abduction Resistance 10 Reps/Time 3 x 10 reps Shuttle Recovery Unilateral Squats Details unilateral squats Resistance 25 # Reps/Time x 10 reps Bilateral Squats Details bilateral squats Resistance 37# Reps/Time 3 x 10 reps Therapeutic Exercises Supine Exercises 3 Supine Exercise Name Manual Hamstring stretch with ankle pumps Reps/Minutes 2 x 30 seconds bridges Supine Exercise Name bridges Reps/Minutes 2 x 10 quads sets Supine Exercise Name quad sets Reps/Minutes x 10 reps left knee Comments with towel under left knee 2 Supine Exercise Name iliopsoas stretch in ebony test position 1 Supine Exercise Name single knee to chest with active hamstring stretch Reps/Minutes x 5 times each side. single knee to ches Supine Exercise Name single knee to chest heel slides Supine Exercise Name heel slides Reps/Minutes x 10 reps Sidelying Exercises 1 Sidelying Exercise Name clam shells Reps/Minutes 2 x 10 Sitting Exercises 1 Sitting Exercise Name seated TKE Reps/Minutes x 15 reps left Standing Exercises 5 Standing Exercise Name side steps in the parallel bars Reps/Minutes 4 reps down and back the length of the parallel bars 4 Standing Exercise Name step ups on 4 step Comments pt reports pain in left knee after 5 reps so ex stopped 3 Standing Exercise Name single leg balance Reps/Minutes 15 sec x 2 B 2 Standing Exercise Name standing 3 way hip Reps/Minutes x 15 each Comments marches, abduction, hip extension 1 Standing Exercise Name standing ONDINA calf stretch Reps/Minutes static and dynamic PT-OP-T Assessment and Plan Start: 12/13/19 15:16 Freq: Status: Active Protocol: Document 01/09/20 13:07 [facility] (Rec: 01/09/20 13:11 [facility] [id number]) Physical Therapy Assessment Assessment Summary Assessment Amy is tolerating increased ther ex and activity levels without a increase in pain, continue to work on quad and iliopsoas flexibility as this region is still tight. Physical Therapy Plan Frequency and Duration Frequency of Treatment 2x/Week Duration of Treatment 8 weeks Plan of Care Start Date 12/13/19 Plan of Care End Date 02/07/20 Therapeutic Interventions Therapeutic Interventions Balance Training,Home Exercise Program,Patient/Caregiver Education,Self-Care/Home Management,Therapeutic Exercises Modalities Cold Pack/Ice Massage Next Visit Focus/Plan Next Note Type Treatment Note Next Visit Plan continue to progress left knee strengthening, stretching the quad, hamstrings, and hip flexors, gait and balance training. Amy's goals include being able to walk to temple from her house.
--- NOTE | 2020-01-11 17:45 | PT.OTN ---
Current Diagnoses Pain in left knee (01/11/20) Physical Therapy Treatment Note PT-OP-A Visit Information Start: 12/13/19 15:16 Freq: Status: Active Protocol: Document 01/11/20 13:44 [facility] (Rec: 01/11/20 13:44 [facility] [email or web address]) Out-Patient Physical Therapy Visit Information Visit Information Visit Type Treatment Note Visit Start Time 13:45 Visit Stop Time 14:30 Total Visit Minutes 45 Visit Number 8 PT-OP-B Current Condition Start: 12/13/19 15:16 Freq: Status: Active Protocol: Document 12/13/19 15:16 [facility] (Rec: 12/13/19 15:28 [facility] [id number]) Current Condition History of Current Condition Onset Date 10 years ago Prior Treatments and Tests Stem cell injections November 28. Dr Wood and Dr Craig ordered . Stem cells were harvested from her left pelvis . She reports her knee feels better than it was before, now not using medication but using heat. Pain right now is a 3-5/10. Prior to the injection is was a 6-7/10. Uses a cane to ambulate. Her goal is to climb steps. She has 15 steps, her son is home now but she wants to get back to stairs. There is two railings. Walks about 3 blocks at this time but would like to walk farther. Has difficulty running the vacuum card cleaner right now. Pt has a history of left sided inguinal hernia. She is carful about not lifting. Treatment Goals Patient/Caregiver Goals Carols goals include improved strength, ROM and pain control of her left knee. She would like to be able to walk a mile to her [place] without pain Current Functional Impairments (Reported) Functional Limitations- Mobility/Gait limited distance with walking to only a few blocks, extreme difficulty with stairs, standing for a hour, and with lifting objects from the floor PT-OP-C Subjective Start: 12/13/19 15:16 Freq: Status: Active Protocol: Document 01/11/20 14:27 [facility] (Rec: 01/11/20 14:32 [facility] [email or web address]) OP-PT Subjective Patient Comments Patient Comments pt reports she has been doing well and was able to walk up the stairs at [place]. Also went to lunch today and [employer] with her daughters PT-OP-G Mobility & Gait Start: 12/13/19 15:16 Freq: Status: Active Protocol: Document 12/13/19 15:15 [facility] (Rec: 12/18/19 08:30 [facility] [email or web address]) OP Gait Assessment Assistive Devices Assistive Device Straight Cane Gait Deviations General Gait Pattern Antalgic Factors Limiting Gait Function Factors Limiting Gait Function Decreased Strength,Poor Balance Comments Gait Comments gluteus medius drop with gait and wide base of support PT-OP-K Range of Motion Start: 12/13/19 15:16 Freq: Status: Active Protocol: Document 12/13/19 15:15 [facility] (Rec: 12/18/19 08:29 [facility] [email or web address]) Knee Goniometric Range of Motion Knee Left Knee ROM WFL No Extension Active (degrees) 5 PT-OP-M Strength Start: 12/13/19 15:16 Freq: Status: Active Protocol: Document 12/13/19 18:14 [facility] (Rec: 12/13/19 18:23 [facility] [email or web address]) Hip Strength Hip Manual Muscle Testing Right Flexion (L2) 4 Good Abduction 3 Fair Left Flexion (L2) 3 Fair Extension (S1) 3 Fair Abduction 2+ Poor+ Knee Strength Knee Manual Muscle Testing Right Flexion (S2) 4 Good Extension (L3) 4 Good Left Flexion (S2) 3 Fair Extension (L3) 3 Fair PT-OP-Q Treatments Start: 12/13/19 15:35 Freq: Status: Active Protocol: Document 01/11/20 14:27 [facility] (Rec: 01/11/20 14:32 [facility] [email or web address]) Cardio Equipment Recumbent Bicycle Duration (Minutes) 5 Other good tolerance for recumbant bike Gym Equipment Cable Column (Body Solid) Hip Abduction Resistance 10 Reps/Time 3 x 10 reps Shuttle Recovery Unilateral Squats Details unilateral squats Resistance 25 # Reps/Time x 10 reps Bilateral Squats Details bilateral squats Resistance 37# Reps/Time 3 x 10 reps Therapeutic Exercises Supine Exercises 3 Supine Exercise Name Manual Hamstring stretch with ankle pumps Reps/Minutes 2 x 30 seconds bridges Supine Exercise Name bridges Reps/Minutes 2 x 10 quads sets Supine Exercise Name quad sets Reps/Minutes x 10 reps left knee Comments with towel under left knee 2 Supine Exercise Name iliopsoas stretch in ebony test position 1 Supine Exercise Name single knee to chest with active hamstring stretch Reps/Minutes x 5 times each side. single knee to ches Supine Exercise Name single knee to chest heel slides Supine Exercise Name heel slides Reps/Minutes x 10 reps Sidelying Exercises 1 Sidelying Exercise Name clam shells Reps/Minutes 2 x 10 Sitting Exercises 1 Sitting Exercise Name seated TKE Reps/Minutes x 15 reps left Standing Exercises 5 Standing Exercise Name side steps in the parallel bars Reps/Minutes 4 reps down and back the length of the parallel bars 2 Standing Exercise Name standing 3 way hip Reps/Minutes x 15 each Comments marches, abduction, hip extension 1 Standing Exercise Name standing ONDINA calf stretch Reps/Minutes static and dynamic PT-OP-T Assessment and Plan Start: 12/13/19 15:16 Freq: Status: Active Protocol: Document 01/11/20 14:27 [facility] (Rec: 01/11/20 14:32 [facility] [email or web address]) Physical Therapy Assessment Assessment Summary Assessment Amy is doing great overall. I did talk to her about continuing to use her cane for ambulation Physical Therapy Plan Frequency and Duration Frequency of Treatment 2x/Week Duration of Treatment 8 weeks Plan of Care Start Date 12/13/19 Plan of Care End Date 02/07/20 Therapeutic Interventions Therapeutic Interventions Balance Training,Home Exercise Program,Patient/Caregiver Education,Self-Care/Home Management,Therapeutic Exercises Modalities Cold Pack/Ice Massage Next Visit Focus/Plan Next Note Type Treatment Note Next Visit Plan continue to progress left knee strengthening, stretching the quad, hamstrings, and hip flexors, gait and balance training. Amy's goals include being able to walk to [place] from her house.
--- NOTE | 2020-01-16 13:44 | PT.OTN ---
Current Diagnoses Pain in left knee (01/16/20) Physical Therapy Treatment Note PT-OP-A Visit Information Start: 12/13/19 15:16 Freq: Status: Active Protocol: Document 01/16/20 13:01 [facility] (Rec: 01/16/20 13:22 [facility] [id number]) Out-Patient Physical Therapy Visit Information Visit Information Visit Type Treatment Note Visit Start Time 13:00 Visit Stop Time 13:45 Total Visit Minutes 45 Visit Number 9 PT-OP-B Current Condition Start: 12/13/19 15:16 Freq: Status: Active Protocol: Document 12/13/19 15:16 [facility] (Rec: 12/13/19 15:28 [facility] [id number]) Current Condition History of Current Condition Onset Date 10 years ago Prior Treatments and Tests Stem cell injections November 28. Dr Wood and Dr Miranda ordered . Stem cells were harvested from her left pelvis . She reports her knee fels better than it was before, now not using medication but using heat. Pain right now is a 3-5/10. Prior to the injection is was a 6-7/10. Uses a cane to ambulate. Her goal is to climb steps. She has 15 steps, her son is home now but she wants to get back to stairs. There is two railings. Walks about 3 blocks at this time but would like to walk farther. Has difficulty running the [employer] right now. Pt has a history of left sided inguinal hernia. She is carful about not lifting. Treatment Goals Patient/Caregiver Goals Carols goals include improved strength, ROM and pain control of her left knee. She would like to be able to walk a mile to her [place] without pain Current Functional Impairments (Reported) Functional Limitations- Mobility/Gait limited distance with walking to only a few blocks, extreme dificulty with stairs, standing for a hour, and with lifting objects from the floor PT-OP-C Subjective Start: 12/13/19 15:16 Freq: Status: Active Protocol: Document 01/16/20 13:01 [facility] (Rec: 01/16/20 13:22 [facility] [id number]) OP-PT Subjective Patient Comments Patient Comments pt reprots she over did it yesterday. She stained her cabnets in her house. She iced her knee yesterday. PT-OP-G Mobility & Gait Start: 12/13/19 15:16 Freq: Status: Active Protocol: Document 12/13/19 15:15 [facility] (Rec: 12/18/19 08:30 [facility] [email or web address]) OP Gait Assessment Assistive Devices Assistive Device Straight Cane Gait Deviations General Gait Pattern Antalgic Factors Limiting Gait Function Factors Limiting Gait Function Decreased Strength,Poor Balance Comments Gait Comments gluteus medius drop with gait and wide base of support PT-OP-K Range of Motion Start: 12/13/19 15:16 Freq: Status: Active Protocol: Document 12/13/19 15:15 [facility] (Rec: 12/18/19 08:29 [facility] [email or web address]) Knee Goniometric Range of Motion Knee Left Knee ROM WFL No Extension Active (degrees) 5 PT-OP-M Strength Start: 12/13/19 15:16 Freq: Status: Active Protocol: Document 12/13/19 18:14 [facility] (Rec: 12/13/19 18:23 [facility] [email or web address]) Hip Strength Hip Manual Muscle Testing Right Flexion (L2) 4 Good Abduction 3 Fair Left Flexion (L2) 3 Fair Extension (S1) 3 Fair Abduction 2+ Poor+ Knee Strength Knee Manual Muscle Testing Right Flexion (S2) 4 Good Extension (L3) 4 Good Left Flexion (S2) 3 Fair Extension (L3) 3 Fair PT-OP-Q Treatments Start: 12/13/19 15:35 Freq: Status: Active Protocol: Document 01/16/20 13:01 [facility] (Rec: 01/16/20 13:22 [facility] [id number]) Cardio Equipment Recumbent Bicycle Duration (Minutes) 5 Other good tolerance for recumbant bike Gym Equipment Cable Column (Body Solid) Hip Abduction Resistance 10 Reps/Time 3 x 10 reps Shuttle Recovery Unilateral Squats Details unilateral squats Resistance 25 # Reps/Time x 10 reps Bilateral Squats Details bilateral squats Resistance 37# Reps/Time 3 x 10 reps Therapeutic Exercises Supine Exercises heel slides Supine Exercise Name heel slides Reps/Minutes x 10 reps PT-OP-T Assessment and Plan Start: 12/13/19 15:16 Freq: Status: Active Protocol: Document 01/16/20 13:01 [facility] (Rec: 01/16/20 13:22 [facility] [id number]) Physical Therapy Assessment Assessment Summary Assessment pt has two visits left in PT, reviewing all established exercises. Good tolerance for her ther ex Physical Therapy Plan Frequency and Duration Frequency of Treatment 2x/Week Duration of Treatment 8 weeks Plan of Care Start Date 12/13/19 Plan of Care End Date 02/07/20 Therapeutic Interventions Therapeutic Interventions Balance Training,Home Exercise Program,Patient/Caregiver Education,Self-Care/Home Management,Therapeutic Exercises Modalities Cold Pack/Ice Massage Next Visit Focus/Plan Next Note Type Treatment Note Next Visit Plan continue to progress left knee strengthening, stretching the quad, hamstrings, and hip flexors, gait and balance training. Amy's goals include being able to walk to [place] from her house.
--- NOTE | 2020-01-18 18:02 | PT.OPPOC ---
Physical, Occupational & Speech Therapy At [facility] Current Diagnoses Pain in left knee (01/18/20) Visit Care Team Role Provider Type Charanjit Craig MD Attending Provider Physician Family Provider Primary Care Provider Referring Provider Specialty: Family Practice Address: [address] [place] [address] [place], [address] Email: [email or web address] Plan Of Care PT-OP-T Assessment and Plan Start: 12/13/19 15:16 Freq: Status: Active Protocol: Document 01/18/20 13:52 [facility] (Rec: 01/18/20 14:16 [facility] [id number]) Physical Therapy Assessment Goals Four Impairment Limited walking distance to 2 blocks [employer] Goal (LTG) Amy is able to ambulate 1 mile from her house to [place] safely and without increased pain Amy has not yet walked to [place], she is doing well with short distances but hasn't tried more than 2 blocks LTG Duration 8 weeks Three Impairment Antalgic gait pattern with wide base of support and trendelenburg gait Custodial Goal (LTG) Amy has improved strength of the left hip and improved gait pattern putting her at decreased risk for falls Excellent progress LTG Duration 8 weeks Two Impairment decreased strength left knee [employer] Goal (LTG) Amy tests 4/5 or better for left knee MMT Excellent progress LTG Duration 8 weeks One Impairment Decreased left knee ROM into extension Short Term Goal (STG) Amy demonstrates full knee ROM into extension of her left knee ROM is now WFL, no pain with knee extension and with quad sets STG Duration 4 weeks Progress Towards Goals Progress Towards Goals Progressing Toward Goals Progress Comments Amy is making steady progress and her complaints of pain are a 2/10. She has not tried to increase her walking as she would like to walk to her [place] which is a mile away. Assessment Summary Assessment Amy has done well with PT visits and demonstrates improved strength of the left LE. She has one visit left and then will DC to a independent [facility] Physical Therapy Plan Frequency and Duration Frequency of Treatment 2x/Week Duration of Treatment 8 weeks Plan of Care Start Date 12/13/19 Plan of Care End Date 02/07/20 Therapeutic Interventions Therapeutic Interventions Balance Training,Home Exercise Program,Patient/Caregiver Education,Self-Care/Home Management,Therapeutic Exercises Modalities Cold Pack/Ice Massage Next Visit Focus/Plan Next Note Type Treatment Note Next Visit Plan Review all exercises that Amy can do for home next visit as it will be her last visit. Plan of Care Dates Plan of Care Start Date 12/13/19 Plan of Care End Date 02/07/20 Electronically Signed by: Olga Vásquez, PT 01/18/20 0433 Please Sign and Return: I have reviewed this Plan of Care and certify that the skilled therapy services above are required to meet the patient?s needs. Physician Signature Date Printed Name and Credentials Clinical Instructor Signature Printed Name and Credentials
--- NOTE | 2020-01-18 18:03 | PT.OTN ---
Current Diagnoses Pain in left knee (01/18/20) Physical Therapy Treatment Note PT-OP-A Visit Information Start: 12/13/19 15:16 Freq: Status: Active Protocol: Document 01/18/20 13:52 [facility] (Rec: 01/18/20 14:16 [facility] [id number]) Out-Patient Physical Therapy Visit Information Visit Information Visit Type Progress Note Visit Start Time 13:45 Visit Stop Time 14:30 Total Visit Minutes 45 Visit Number 10 PT-OP-B Current Condition Start: 12/13/19 15:16 Freq: Status: Active Protocol: Document 12/13/19 15:16 [facility] (Rec: 12/13/19 15:28 [facility] [id number]) Current Condition History of Current Condition Onset Date 10 years ago Prior Treatments and Tests Stem cell injections November 28. Dr Wood and Dr Miranda ordered . Stem cells were harvested from her left pelvis . She reports her knee fels better than it was before, now not using medication but using heat. Pain right now is a 3-5/10. Prior to the injection is was a 6-7/10. Uses a cane to ambulate. Her goal is to climb steps. She has 15 steps, her son is home now but she wants to get back to stairs. There is two railings. Walks about 3 blocks at this time but would like to walk farther. Has difficulty running the [employer] right now. Pt has a history of left sided inguinal hernia. She is carful about not lifting. Treatment Goals Patient/Caregiver Goals [place] goals include improved strength, ROM and pain control of her left knee. 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 She has a long handled roller. She has been resting when she needs to . She has her follow up with Dr Wood next week for her follow up. PT-OP-G Mobility & Gait Start: 12/13/19 15:16 Freq: Status: Active Protocol: Document 12/13/19 15:15 [facility] (Rec: 12/18/19 08:30 [facility] [email or web address]) OP Gait Assessment Assistive Devices Assistive Device Straight Cane Gait Deviations General Gait Pattern Antalgic Factors Limiting Gait Function Factors Limiting Gait Function Decreased Strength,Poor Balance Comments Gait Comments gluteus medius drop with gait and wide base of support PT-OP-K Range of Motion Start: 12/13/19 15:16 Freq: Status: Active Protocol: Document 12/13/19 15:15 [facility] (Rec: 12/18/19 08:29 [facility] [email or web address]) Knee Goniometric Range of Motion Knee Left Knee ROM WFL No Extension Active (degrees) 5 PT-OP-M Strength Start: 12/13/19 15:16 Freq: Status: Active Protocol: Document 12/13/19 18:14 [facility] (Rec: 12/13/19 18:23 [facility] [email or web address]) Hip Strength Hip Manual Muscle Testing Right Flexion (L2) 4 Good Abduction 3 Fair Left Flexion (L2) 3 Fair Extension (S1) 3 Fair Abduction 2+ Poor+ Knee Strength Knee Manual Muscle Testing Right Flexion (S2) 4 Good Extension (L3) 4 Good Left Flexion (S2) 3 Fair Extension (L3) 3 Fair PT-OP-Q Treatments Start: 12/13/19 15:35 Freq: Status: Active Protocol: Document 01/18/20 13:52 [facility] (Rec: 01/18/20 14:16 [facility] [id number]) Cardio Equipment Recumbent Bicycle Duration (Minutes) 5 Other good tolerance for recumbant bike Therapeutic Exercises Supine Exercises 3 Supine Exercise Name Manual Hamstring stretch with ankle pumps Reps/Minutes 2 x 30 seconds bridges Supine Exercise Name bridges Reps/Minutes 2 x 10 quads sets Supine Exercise Name quad sets Reps/Minutes x 10 reps left knee Comments with towel under left knee 2 Supine Exercise Name iliopsoas stretch in ebony test position 1 Supine Exercise Name single knee to chest with active hamstring stretch Reps/Minutes x 5 times each side. single knee to ches Supine Exercise Name single knee to chest heel slides Supine Exercise Name heel slides Reps/Minutes x 10 reps Sidelying Exercises 1 Sidelying Exercise Name clam shells Reps/Minutes 2 x 10 Standing Exercises 5 Standing Exercise Name side steps in the parallel bars Reps/Minutes 4 reps down and back the length of the parallel bars 4 Standing Exercise Name step ups on 4 step Comments pt reports pain in left knee after 5 reps so ex stopped 3 Standing Exercise Name single leg balance Reps/Minutes 15 sec x 2 B 2 Standing Exercise Name standing 3 way hip Reps/Minutes x 15 each Comments marches, abduction, hip extension 1 Standing Exercise Name standing ONDINA calf stretch Reps/Minutes static and dynamic PT-OP-T Assessment and Plan Start: 12/13/19 15:16 Freq: Status: Active Protocol: Document 01/18/20 13:52 [facility] (Rec: 01/18/20 14:16 [facility] [id number]) Physical Therapy Assessment Goals Four Impairment Limited walking distance to 2 blocks [facility] Goal (LTG) Amy is able to ambulate 1 mile from her house to congregation safely and without increased pain Amy has not yet walked to congregation, she is doing well with short distances but hasn't tried more than 2 blocks LTG Duration 8 weeks Three Impairment Antalgic gait pattern with wide base of support and trendelenburg gait [facility] Goal (LTG) Amy has improved strength of the left hip and improved gait pattern putting her at decreased risk for falls Excellent progress LTG Duration 8 weeks Two Impairment decrased strength left knee Hand Patcher Goal (LTG) Amy tests 4/5 or better for left knee MMT Excellent progress LTG Duration 8 weeks One Impairment Decreased left knee ROM into extension Short Term Goal (STG) Amy demonstrates full knee ROM into extension of her left knee ROM is now WFL, no pain with knee extension and with quad sets STG Duration 4 weeks Progress Towards Goals Progress Towards Goals Progressing Toward Goals Progress Comments Amy is making steady progress and her complaints of pain are a 2/10. She has not tried to increase her walking as she would like to walk to her congregation which is a mile away. Assessment Summary Assessment Amy has done well with PT visits and demonstrates improved strength of the left LE. She has one visit left and then will DC to a independent [facility] Physical Therapy Plan Frequency and Duration Frequency of Treatment 2x/Week Duration of Treatment 8 weeks Plan of Care Start Date 12/13/19 Plan of Care End Date 02/07/20 Therapeutic Interventions Therapeutic Interventions Balance Training,Home Exercise Program,Patient/Caregiver Education,Self-Care/Home Management,Therapeutic Exercises Modalities Cold Pack/Ice Massage Next Visit Focus/Plan Next Note Type Treatment Note Next Visit Plan Review all exercises that Amy can do for home next visit as it will be her last visit.
--- NOTE | 2020-01-23 17:21 | PT.OTN ---
Current Diagnoses Pain in left knee (01/23/20) Physical Therapy Treatment Note PT-OP-A Visit Information Start: 12/13/19 15:16 Freq: Status: Active Protocol: Document 01/23/20 15:20 [facility] (Rec: 01/23/20 15:29 [facility] [id number]) Out-Patient Physical Therapy Visit Information Visit Information Visit Type Treatment Note Visit Start Time 15:15 Visit Stop Time 16:00 Total Visit Minutes 45 Visit Number 11 PT-OP-B Current Condition Start: 12/13/19 15:16 Freq: Status: Active Protocol: Document 12/13/19 15:16 [facility] (Rec: 12/13/19 15:28 [facility] [id number]) Current Condition History of Current Condition Onset Date 10 years ago Prior Treatments and Tests Stem cell injections November 28. Dr Wood and Dr Miranda ordered . Stem cells were harvested from her left pelvis . She reports her knee fels better than it was before, now not using medication but using heat. Pain right now is a 3-5/10. Prior to the injection is was a 6-7/10. Uses a cane to ambulate. Her goal is to climb steps. She has 15 steps, her son is home now but she wants to get back to stairs. There is two railings. Walks about 3 blocks at this time but would like to walk farther. Has difficulty running the [employer] right now. Pt has a history of left sided inguinal hernia. She is carful about not lifting. Treatment Goals Patient/Caregiver Goals Carols goals include improved strength, ROM and pain control of her left knee. She would like to be able to walk a mile to her mormonism without pain Current Functional Impairments (Reported) Functional Limitations- Mobility/Gait limited distance with walking to only a few blocks, extreme dificulty with stairs, standing for a hour, and with lifting objects from the floor PT-OP-C Subjective Start: 12/13/19 15:16 Freq: Status: Active Protocol: Document 01/23/20 15:20 [facility] (Rec: 01/23/20 15:29 [facility] [id number]) OP-PT Subjective Patient Comments Patient Comments Amy states she has been walking more and she is up to 2 blocks. She is now able to step up with a step over step PT-OP-G Mobility & Gait Start: 12/13/19 15:16 Freq: Status: Active Protocol: Document 12/13/19 15:15 [facility] (Rec: 12/18/19 08:30 [facility] [id number]) OP Gait Assessment Assistive Devices Assistive Device Straight Cane Gait Deviations General Gait Pattern Antalgic Factors Limiting Gait Function Factors Limiting Gait Function Decreased Strength,Poor Balance Comments Gait Comments gluteus medius drop with gait and wide base of support PT-OP-K Range of Motion Start: 12/13/19 15:16 Freq: Status: Active Protocol: Document 12/13/19 15:15 [facility] (Rec: 12/18/19 08:29 [facility] [id number]) Knee Goniometric Range of Motion Knee Left Knee ROM WFL No Extension Active (degrees) 5 PT-OP-M Strength Start: 12/13/19 15:16 Freq: Status: Active Protocol: Document 12/13/19 18:14 [facility] (Rec: 12/13/19 18:23 [facility] [email or web address]) Hip Strength Hip Manual Muscle Testing Right Flexion (L2) 4 Good Abduction 3 Fair Left Flexion (L2) 3 Fair Extension (S1) 3 Fair Abduction 2+ Poor+ Knee Strength Knee Manual Muscle Testing Right Flexion (S2) 4 Good Extension (L3) 4 Good Left Flexion (S2) 3 Fair Extension (L3) 3 Fair PT-OP-Q Treatments Start: 12/13/19 15:35 Freq: Status: Active Protocol: Document 01/23/20 15:20 [facility] (Rec: 01/23/20 15:29 [facility] [id number]) Cardio Equipment Recumbent Elliptical (Biodex) Duration (Minutes) 5 Resistance 0 Gym Equipment Cable Column (Body Solid) Hip Abduction Resistance 10 Reps/Time 3 x 10 reps Shuttle Recovery Unilateral Squats Details unilateral squats Resistance 25 # Reps/Time x 10 reps Bilateral Squats Details bilateral squats Resistance 37# Reps/Time 3 x 10 reps Therapeutic Exercises Supine Exercises bridges Supine Exercise Name bridges Reps/Minutes 2 x 10 quads sets Supine Exercise Name quad sets Reps/Minutes x 10 reps left knee Comments with towel under left knee single knee to ches Supine Exercise Name single knee to chest Sidelying Exercises 1 Sidelying Exercise Name clam shells Reps/Minutes 2 x 10 Sitting Exercises 1 Sitting Exercise Name seated TKE Reps/Minutes x 15 reps left Standing Exercises 5 Standing Exercise Name side steps in the parallel bars Reps/Minutes 4 reps down and back the length of the parallel bars 4 Standing Exercise Name step ups on 4 step Comments pt reports pain in left knee after 5 reps so ex stopped 3 Standing Exercise Name single leg balance Reps/Minutes 15 sec x 2 B 2 Standing Exercise Name standing 3 way hip Reps/Minutes x 15 each Comments marches, abduction, hip extension 1 Standing Exercise Name standing ONDINA calf stretch Reps/Minutes static and dynamic PT-OP-T Assessment and Plan Start: 12/13/19 15:16 Freq: Status: Active Protocol: Document 01/23/20 15:20 [facility] (Rec: 01/23/20 15:29 [facility] [id number]) Physical Therapy Assessment Assessment Summary Assessment Amy has shown good improvements with knee ROM and strength. She is able now to perform step over step and has full knee ROM. She demonstrates independence with her HEP and will be discharged at this time Physical Therapy Plan Frequency and Duration Frequency of Treatment 2x/Week Duration of Treatment 8 weeks Plan of Care Start Date 12/13/19 Plan of Care End Date 02/07/20 Therapeutic Interventions Therapeutic Interventions Balance Training,Home Exercise Program,Patient/Caregiver Education,Self-Care/Home Management,Therapeutic Exercises Modalities Cold Pack/Ice Massage Discharge Physical Therapy Discharge Reasons Goals Met Next Visit Focus/Plan Next Note Type Treatment Note Next Visit Plan Review all exercises that Amy can do for home next visit as it will be her last visit.
--- NOTE | 2020-01-23 17:23 | PT.OPDS ---
Current Diagnoses Pain in left knee (01/23/20) Visit Care Team Role Provider Type Charanjit Craig MD Attending Provider Physician Family Provider Primary Care Provider Referring Provider Specialty: Family Practice Address: [address] [place] [address], [facility] [place] [place] [place], [facility] Email: [email or web address] Visit Number Visit Number 11 Discharge Summary PT-OP-B Current Condition Start: 12/13/19 15:16 Freq: Status: Active Protocol: Document 12/13/19 15:16 [facility] (Rec: 12/13/19 15:28 [facility] [id number]) Current Condition History of Current Condition Onset Date 10 years ago Prior Treatments and Tests Stem cell injections November 28. Dr Wood and Dr Miranda ordered . Stem cells were harvested from her left pelvis . She reports her knee fels better than it was before, now not using medication but using heat. Pain right now is a 3-5/10. Prior to the injection is was a 6-7/10. Uses a cane to ambulate. Her goal is to climb steps. She has 15 steps, her son is home now but she wants to get back to stairs. There is two railings. Walks about 3 blocks at this time but would like to walk farther. Has difficulty running the [employer] right now. Pt has a history of left sided inguinal hernia. She is carful about not lifting. Treatment Goals Patient/Caregiver Goals Huber goals include improved strength, ROM and pain control of her left knee. She would like to be able to walk a mile to her faith without pain Current Functional Impairments (Reported) Functional Limitations- Mobility/Gait limited distance with walking to only a few blocks, extreme dificulty with stairs, standing for a hour, and with lifting objects from the floor PT-OP-C Subjective Start: 12/13/19 15:16 Freq: Status: Active Protocol: Document 01/23/20 15:20 [facility] (Rec: 01/23/20 15:29 [facility] [id number]) OP-PT Subjective Patient Comments Patient Comments Amy states she has been walking more and she is up to 2 blocks. She is now able to step up with a step over step PT-OP-G Mobility & Gait Start: 12/13/19 15:16 Freq: Status: Active Protocol: Document 12/13/19 15:15 [facility] (Rec: 12/18/19 08:30 [facility] [email or web address]) OP Gait Assessment Assistive Devices Assistive Device Straight Cane Gait Deviations General Gait Pattern Antalgic Factors Limiting Gait Function Factors Limiting Gait Function Decreased Strength,Poor Balance Comments Gait Comments gluteus medius drop with gait and wide base of support PT-OP-K Range of Motion Start: 12/13/19 15:16 Freq: Status: Active Protocol: Document 12/13/19 15:15 [facility] (Rec: 12/18/19 08:29 [facility] [email or web address]) Knee Goniometric Range of Motion Knee Left Knee ROM WFL No Extension Active (degrees) 5 PT-OP-M Strength Start: 12/13/19 15:16 Freq: Status: Active Protocol: Document 12/13/19 18:14 [facility] (Rec: 12/13/19 18:23 [facility] [email or web address]) Hip Strength Hip Manual Muscle Testing Right Flexion (L2) 4 Good Abduction 3 Fair Left Flexion (L2) 3 Fair Extension (S1) 3 Fair Abduction 2+ Poor+ Knee Strength Knee Manual Muscle Testing Right Flexion (S2) 4 Good Extension (L3) 4 Good Left Flexion (S2) 3 Fair Extension (L3) 3 Fair PT-OP-T Assessment and Plan Start: 12/13/19 15:16 Freq: Status: Active Protocol: Document 01/23/20 15:20 [facility] (Rec: 01/23/20 15:29 [facility] [id number]) Physical Therapy Assessment Assessment Summary Assessment Amy has shown good improvements with knee ROM and strength. She is able now to perform step over step and has full knee ROM. She demonstrates independence with her HEP and will be discharged at this time Physical Therapy Plan Frequency and Duration Frequency of Treatment 2x/Week Duration of Treatment 8 weeks Plan of Care Start Date 12/13/19 Plan of Care End Date 02/07/20 Therapeutic Interventions Therapeutic Interventions Balance Training,Home Exercise Program,Patient/Caregiver Education,Self-Care/Home Management,Therapeutic Exercises Modalities Cold Pack/Ice Massage Discharge Physical Therapy Discharge Reasons Goals Met
== END 2020-01-24 10:49 | disposition home or self-care (01) ==
LOC: PHYS 15:15
PROVIDERS: Family Provider Family Medicine; PCP Family Medicine; Referring Provider Family Medicine; Visit Provider Family Medicine
DX: M25.562 Pain in left knee (principal)
CPT/HCPCS: 97110; 97140; 97161

== ENCOUNTER → 2020-05-10 15:06 | Outpatient (CLI) | payer MEDICARE, OTHER, SELFPAY ==
--- NOTE | 2020-05-10 | DI.RAD.S_ITS ---
PROCEDURE: XR KNEE LT 3V INDICATIONS: LT KNEE PAIN TECHNIQUE: 3 views of the knee were acquired. COMPARISON: [facility], , KNEE 3V LEFT, 06/08/2016, 15:37. FINDINGS: Bones: No fracture. Severe narrowing of the medial joint space. Scattered degenerative subchondral sclerosis and spurring. Soft tissues: Small joint effusion IMPRESSION: Severe left knee joint degeneration involving the medial compartment. This appears progressed since the prior study. Small joint effusion Dictated by: James Rm M.D. on 05/10/2020 at 16:39 Approved by: James Rm M.D. on 05/10/2020 at 16:40
== END ==
PROVIDERS: Family Provider Family Medicine; PCP Family Medicine; Referring Provider Family Medicine; Visit Provider Family Medicine
DX: M25.562 Pain in left knee (principal); M17.12 Unilateral primary osteoarthritis, left knee; M25.462 Effusion, left knee
CPT/HCPCS: 73560

== ENCOUNTER → 2020-06-27 14:13 | Outpatient (CLI) | payer MEDICARE, OTHER, SELFPAY ==
--- NOTE | 2020-06-27 | DI.MRI.S_ITS ---
PROCEDURE: MR KNEE LT WO CON INDICATIONS: BILATERAL PAIN TECHNIQUE: Noncontrast sagittal PD fast spin echo and T2 fast spin echo with fat saturation, sagittal 3-D FLASH with fat saturation; coronal T1 spin echo and PD fast spin echo with fat saturation, and axial PD fast spin echo with fat saturation through the knee. COMPARISON: None. FINDINGS: Image quality: Excellent. Menisci: Macerated circumferential tear of medial meniscus involving the anterior horn posterior horn and body. There is partial extrusion Subtle vertically oriented signal change involving the free margin of the body of the lateral meniscus, technically indeterminate by strict MR criteria Cruciate ligaments: Anterior cruciate ligament appears intact. Posterior cruciate ligament appears intact. Medial structures: There is medial bowing of the medial collateral ligament, with mild internal signal changes and no complete rupture. There is adjacent soft tissue edema. The appearance could reflect reactive changes to medial compartment pathology, versus low-grade sprain of the MCL. Pes anserinus tendons appear grossly unremarkable. Semimembranosus tendon appears intact. Lateral structures: The lateral collateral ligament intact. Biceps femoris tendon appears intact. Popliteus tendon grossly unremarkable. Iliotibial band appears intact. Anterior structures: Quadriceps tendon intact. Medial and lateral patellofemoral ligaments intact. Patellar tendon appears intact. Hoffa's fat pad unremarkable. Bones and cartilage: No focal marrow contusion or discrete low signal fracture line. Within the medial compartment, near full thickness loss of the femoral and tibial articular cartilage Within the lateral compartment, diffuse surface fraying and intrasubstance signal changes of the femoral and tibial cartilage Within the patellofemoral compartment, no focal cartilage defect. Joint space: Moderate joint effusion Trace Tiwari's cyst measuring 1 cm in the cephalocaudal dimension. Possible debris within the suprapatellar recess, versus synovitis. IMPRESSION: Macerated circumferential tear of the medial meniscus with partial extrusion. Abnormal signal involving the free margin of the body of the lateral meniscus, however technically indeterminate by strict MR criteria and recommend clinical correlation. Advanced joint degeneration most pronounced in the medial compartment Moderate joint effusion Trace Tiwari's cyst Ill-defined suprapatellar recess nodularity, potentially intra-articular debris versus reactive synovitis Dictated by: James Rm M.D. on 06/27/2020 at 15:44 Approved by: James Rm M.D. on 06/27/2020 at 15:50
== END ==
PROVIDERS: Family Provider Family Medicine; PCP Family Medicine; Referring Provider Orthopaedic Surgery; Visit Provider Orthopaedic Surgery
DX: M17.0 Bilateral primary osteoarthritis of knee (principal); S83.242A Other tear of medial meniscus, current injury, left knee, initial encounter; M25.462 Effusion, left knee
CPT/HCPCS: 73721

== ENCOUNTER → 2020-07-03 11:08 | Outpatient (CLI) | payer MEDICARE, OTHER, SELFPAY ==
[2020-07-03 12:09] LABS: Bacteria Urine None Seen; RBC Urine None Seen (0-5/HPF); WBC Urine None Seen (0-5/HPF)
[2020-07-03 12:18] LABS: Add Manual Diff / Slide Review NO; Basophils Absolute Auto 100 /uL (0-100); Basophils Percent Auto 0.7 % (0-2); Eosinophils Absolute Auto 300 /uL (0-450); Eosinophils Percent Auto 3.4 % (2-4); Hematocrit 38.8 % (36-46); Lymphocytes Absolute Auto 1600 /uL (1100-4500); Lymphocytes Percent Auto 21.8 % (25-40); Mean Corpuscular HGB Conc 33.6 % (30-36); Mean Corpuscular Hemoglobin 28.8 PG (26-34); Mean Corpuscular Volume 85.9 fL (80-100); Monocytes Absolute Auto 600 /uL (0-900); Neutrophils Absolute Auto 4900 /uL (1500-7000); Neutrophils Percent Auto 66.1 % (50-75); Platelet Count 310 X10^3/uL (150-400); Red Blood Cell Count 4.51 X10^6/uL (4.0-5.2); Red Cell Distribution Width 14.5 % (11.6-14.8); White Blood Cell Count 7.4 X10^3/uL (4.5-11.0)
[2020-07-03 12:25] LABS: Hemoglobin A1C% w Est Avg Glu 5.7 % (4.0-6.0)
[2020-07-03 12:31] LABS: Alanine Aminotransferase 19 IU/L (<35); Albumin 4.3 g/dL (3.5-5.0); Albumin Globulin Ratio 1.5 (1.0-2.8); Alkaline Phosphatase 84 U/L (38-126); Aspartate Aminotransferase 28 IU/L (14-36); BUN Creatinine Ratio 30.9 (6-22); Bilirubin Total 0.3 mg/dL (0.2-1.3); Blood Urea Nitrogen 25 mg/dL (7-17); Calcium 9.5 mg/dL (8.4-10.2); Carbon Dioxide 31 mmol/L (22-32); Chloride 102 mmol/L (98-107); Estimated Glomerular Filt Rate > 60.0 mL/min (>60); Globulin 2.9 g/dL (1.7-4.1); Glucose 93 mg/dL (80-110); HEMOLYSIS < 15 (0-50); Potassium 4.1 mmol/L (3.4-5.1); Sodium 138 mmol/L (137-145); Total Protein 7.2 g/dL (6.3-8.2)
[2020-07-03 12:45] LABS: Appearance Urine UA CLEAR; Bilirubin Urine UA NEGATIVE (NEGATIVE); Color Urine UA YELLOW; Glucose Urine UA NEGATIVE (Negative); Ketones Urine UA NEGATIVE (NEGATIVE); Leukocyte Esterase Urine UA NEGATIVE (NEGATIVE); Nitrite Urine UA NEGATIVE (Negative); Occult Blood Urine UA NEGATIVE (Negative); Protein Urine UA NEGATIVE (Negative); Specific Gravity Urine UA <=1.005 (1.000-1.035); Urobilinogen Urine UA 0.2 E.U./dL (0.2)
[2020-07-03 12:56] LABS: Culture Indicated Urine Cult Not Indicated; Urine Comments Microscopic Normal
== END ==
PROVIDERS: Family Provider Family Medicine; PCP Family Medicine; Referring Provider Orthopaedic Surgery; Visit Provider Orthopaedic Surgery
DX: Z01.818 Encounter for other preprocedural examination (principal); Z01.812 Encounter for preprocedural laboratory examination; R73.9 Hyperglycemia, unspecified; N39.0 Urinary tract infection, site not specified
CPT/HCPCS: 36415; 80053; 81001; 83036; 85025; 93005

== ENCOUNTER → 2020-07-20 10:12 | Outpatient (CLI) | payer MEDICARE, OTHER, SELFPAY ==
[2020-07-20 10:53] LABS: COVID19 -Nasal RAPID Negative (Negative)
== END ==
PROVIDERS: Family Provider Family Medicine; PCP Family Medicine; Visit Provider Physician Assistant
DX: Z20.822 Contact with and (suspected) exposure to COVID-19 (principal)
CPT/HCPCS: 87635; C9803

== ENCOUNTER 2020-07-23 06:00 | Day surgery (SDC) | payer MEDICARE, OTHER, SELFPAY ==
[2020-07-23] VITALS (15 sets, daily range): BP systolic 142–186; BP diastolic 61–91; PULSE 62–74; RESP 12–18; TEMP 36.2–36.8; O2SAT 96–99; BMI 20.8
[2020-07-23] MEDS: LACTATED RINGERS 1,000 ML 42 ML IV (07:10)
[2020-07-23] MEDS: VANCOMYCIN 1,000 MG/200 ML PIGGYBACK 200 MG IV (07:14)
--- NOTE | 2020-07-23 07:26 | SUR.OPER ---
Supine on padded OR bed. Pillow under head, arms secured on padded armboards <90 degree abduction. Safety belt across torso. Non-operative leg secured with tape over blanket over lower leg. Operative leg secured in DeMayo/Vadim positioner. Foam padded brace at thigh of operative leg.
--- NOTE | 2020-07-23 07:43 | PM.PREOP ---
Pre-operative Note COVID-19 COVID-19 status: Negative Interval Note History & Physical reviewed/Exam performed by Physician: Yes Changes to H&P: No
--- NOTE | 2020-07-23 07:43 | PM.OP.1 ---
Operative Date/Time/Diagnoses Date of procedure: 07/23/20 Time of procedure: 07:58 Pre-op diagnosis: left knee OA Post-op diagnosis: same Procedure & Clinicians Procedure: left knee medial unicompartment replacement Same procedure as scheduled: Yes Indications: The patient has had progressively worsening left knee pain with radiographic changes consistent with arthritis. Non-operative management has failed and the patient has requested left medial unicompartment knee replacement. The risks, benefits and alternatives to surgery were discussed with the patient prior to proceeding. Risks discussed included, but were not limited to, failure to relieve pain, stiffness, infection, nerve damage, deep venous thrombosis, pulmonary embolism, stroke, coma, heart attack, permanent paralysis and , as well as the potential need for eventual revision of the prosthetic. Surgeon: Amira Singleton Supervisor Electric Motor Testing: Trav Sapp Anesthesia Type: General Operative Notes Findings: severe left knee osteoarthritis in the medial compartment, good stability and balance Closure Type: primary Specimen(s): none sent Prosthetic devices, grafts, tissues, transplants, or devices: Singleton and Nephew Zuk size D femur, size 3 tibia +8 poly Estimated Blood Loss (mL): 100 Blood products transfused: none Tourniquet time (min): 49 Procedure in detail: The patient was seen in the pre-operative area, where the left knee was identified as the operative site and this was marked with my initials. The patient received pre-operative antibiotics, and was taken to the operating room and placed on the operative table in the supine position. After satisfactory anesthesia, a alarm signal operator out was performed. The left leg was encircled with a tourniquet about the proximal thigh, and the leg was prepared from the toes to the tourniquet with ChloroPrep in the usual fashion and draped through sterile drapes. The leg was elevated and exsanguinated with Eschmark bandage and the tourniquet inflated to [250] mmHg pressure. The knee was approached through an approximately 10 cm incision medial parapatella incision and carried into the knee through a medial parapatellar arthrotomy. The osteophytes and medial meniscus were removed. Next, a small amount of the anterior tibial boss was carefully resected with a saw. The guide was placed along the medial joint line. It was meticulously adjusted to make sure there was appropriate slope that it was at the joint line and then was pinned to the tibia and the femur. The medial femoral condylar cut was made in extension. The tibial cut was made in flexion. The bone was meticulously irrigated with normal saline. Small amount of additional meniscus was resected posterior capsule was checked and injected with Marcaine. The extension gap was carefully checked with an 8 mm gap distillery worker general was noted that it fit well. A small number of additional osteophytes were resected. The tibia was a size [3]. It was noted that it fit without overhang. The femur was sized and it was noted to be a [D]. The appropriate cutting guide was pinned into place and carefully positioned on the femoral condyle. Drill holes were placed. The tibia was pinned into place and drill holes were made. Trial reduction with the appropriate poly showed full range of motion and good stability at 0, 45. and 90? with normal tracking of the components without edge loading. The bone was meticulously irrigated and dried. Additional Marcaine was injected. The posterior capsule was injected with 0.25% Marcaine mixed with 20 ml Exparel for post-operative pain control. The remainder of this mixture was injected into the capsule and subcutaneous tissues during cement curing. Range of motion was [0-130], with good stability throughout the range. The trials were then remove. The cement was as applied and the final prosthetics placed. Excess cement was removed during and after cement curing. A brief medial compartment Betadine soak was performed. After confirming there was no extruded cement posteriorly, the final tibial insert was placed. The knee was copiously irrigated and the tourniquet deflated. Hemostasis was obtained. The capsule was closed with interrupted vicryl. The subcutaneous tissue was closed with barbed sutures. The skin with a running 3-0 V-Lock suture and surgical glue. An Aquacel Ag dressing was applied and the patient was taken to recovery having tolerated the procedure well. Complications: none Post-operative Condition: stable Disposition: observation Plan for aftercare: The patient will be maintained on a standard medial unicompartment knee replacement protocol with weight bearing as tolerated. The patient will receive aspirin and sequential compression devices for DVT prophylaxis. The patient will be discharged home when safe for the home environment.
[2020-07-23] MEDS: CEFAZOLIN 2 GM/100 ML FROZ.PIGGY IV (08:05)
[2020-07-23] MEDS: TRANEXAMIC ACID 1,000 MG VIAL 1000 MG IV ×2 (08:12→09:06)
[2020-07-23] MEDS: BUPIVACAINE 0.25% W/ EPI (PF) 10 ML VIAL 20 ML INJ (08:12)
[2020-07-23] MEDS: BUPIVACAINE LIPOSOME 266 MG/20 ML VIAL INJ (08:13)
[2020-07-23] MEDS: OXYCODONE IR 5 MG TABLET PO (09:47)
[2020-07-23] MEDS: LACTATED RINGERS 1,000 ML 100 ML IV (10:41)
--- NOTE | 2020-07-23 10:52 | PC.NURSE ---
Addendum entered by Rema Grady R.N. 07/23/20 14:17: Went over dc instructions and medications with patient and patients daughter Emily, questions answered. RX for new meds given, patient taken via [place] to vehicle driven by Emily.Patient had all belongings. Addendum entered by Rema Grady R.N. 07/23/20 14:14: Patient passed physical therapy, patient became nauseated but no emesis. Nausea resolved after sitting, patient and patients daughter Emily agreeable to discharge this afternoon. Original Note: Patient alert,oriented denies pain and nausea,SBA fro stretcher to BSC, patient voided 400cc urine.Gait steady with FWW, CMS+ LLE, scd's placed. Patient oriented to room and call light. Bed alarm on.
[2020-07-23] MEDS: ACETAMINOPHEN 325 MG TABLET 650 MG PO (13:08)
[2020-07-23] MEDS: dilTIAZem CD 120 MG CAP PO (13:09)
[2020-07-23] MEDS: dilTIAZem CD 180 MG CAP PO (13:09)
--- NOTE | 2020-07-23 13:50 | PT.IIE ---
Current Diagnoses Unilateral primary osteoarthritis, left knee (07/23/20) Unspecified osteoarthritis, unspecified site (07/23/20) Surgery Performed Operation Date: 07/23/20 07:45 Actual Procedures p Unicompartment Knee Arthroplasty(Left) - Amira Singleton MD Surgical History (Last Updated 07/22/20 @ 16:38 by Joy Camp, RN) History of vein stripping Medical History (Last Updated 07/22/20 @ 16:40 by Joy Camp, RN) Acute myocardial infarction (~1978) Arthritis Cancer of skin Degenerative joint disease Fibromyalgia Gout Hypertension Inflammatory bowel disease Liver disease Lyme disease Obesity Osteoporosis Parkinson disease Peptic ulcer disease Scoliosis Physical Therapy Inpatient Evaluation/Re-Eval M1 PT/OT-IP Prior Functional Status Start: 07/23/20 13:12 Freq: NEEDED Status: Active Protocol: Document 07/23/20 13:50 AW (Rec: 07/23/20 14:00 AW [id number]) Medical Review Prior Functional Status Medical History Reviewed Yes Communication Pt is an effective verbal communicator. She is [employer] [place] [employer] [place] and typically wears hearing aids. Mobility and Gait Pt uses a SPC for community mobility but has needed her FWW in recent weeks due to increasing pain. Pt reports one fall in the past year. Activities of Daily Living and IADL's Independent with use of slip on shoes for dressing. Pt has not required assist of any kind for showers or toileting. She relies on her children for transportation. Prior Functional Level (Other details) Pt was seen in outpatient PT here last summer related to her knee pain. Social History Household Members children Living Arrangements Apartment/Condo Number of Floors (Floors) One Floor Number of Stairs To Enter/Railing? Ramped entry at garage. Pt's daughter states ramp is ADA compliant. Home Environment Standard Height Toilet Home Equipment Front Wheel Walker,Straight Cane,Shower Seat without Backrest,Hand Held Shower,Grab Bars Near Toilet Additional Social History Comment Pt lives with her son John who works full-time outside the home. Pt's daughters Emily and Padmini plan to stay alternating days with the pt when she discharges. M2 PT-IP Current Condition Start: 07/23/20 13:12 Freq: NEEDED Status: Active Protocol: Document 07/23/20 13:50 AW (Rec: 07/23/20 14:00 AW [id number]) Physical Therapy Current Condition Current Condition Evaluation Date 07/23/20 Treatment Diagnosis L knee medial compartment arthroplasty; difficulty in walking Onset Date 07/23/20 Weight Bearing Status Weight Bearing Status Weight Bear as Tolerated M3 PT-IP Subjective Start: 07/23/20 13:12 Freq: NEEDED Status: Active Protocol: Document 07/23/20 13:50 AW (Rec: 07/23/20 14:00 AW [id number]) Subjective Physical Therapy Visit Type Type Initial Evaluation Visit Start Time 13:18 Visit Stop Time 13:48 Total Visit Minutes 30 Notes Pt's daughter, Emily, present throughout evaluation and contributing to history. Physical Therapy Visit Comments Patient Comments Pt is willing to participate with PT Patient Goals Hopes to go home today Therapy Pain Assessment Pain When Pain Assessed During Mobility Pain Present Pain Present Pain Reported Location left knee Intensity 2 Scale Used Numeric (0 - 10) Pain Management Techniques Apply Cold,Timing of Activity with Medications M4 PT-IP Mobility and Gait Start: 07/23/20 13:12 Freq: NEEDED Status: Active Protocol: Document 07/23/20 13:50 AW (Rec: 07/23/20 14:00 AW [id number]) PT-Bed Mobility Assessment Supine to Sit Supine to Sit Standby Assistance Scooting Scooting to Edge of Bed Standby Assistance PT-Transfer Assessment Sit to and From Stand Sit to and from Stand Standby Assistance,Contact Guard Assistance,Use of Upper Extremities Equipment Transfer Assistive Device Gait Belt,Front Wheeled Walker Orthotic/Prosthetic Devices or Brace: No Transfers Transfer Destination Chair Transfer Technique Stand Step Pivot Transfer Ability Level of Assist Standby Assistance Comments Mobility Comments Pt was reclined in the bed as PT arrived. BP was 171/91 HR 73. She completed supine to sit from flat bed SBA and sat EOB with and without UE support. She stood from the bed CGA and used the FWW to ambulate in the halls. On return to the room, she transferred to EOB before transferring once again to the chair. She completed sit to stand x 2 with daughter providing assist on second rep . No more than SBA required. Pt was positioned on the chair with call light and all needs in reach. Daughter remained in the room. Gait Assessment Gait Gait Assistance Required: Standby Assistance Distance (Feet) 120 Able to Maintain Weight Bearing Status Yes During Gait Assistive Devices Assistive Device Gait Belt,Front Wheeled Walker Orthotic/Prosthetic Devices or Brace: No Gait Deviations General Gait Pattern Antalgic,Decreased Stride Length,Decreased Feet Clearance,Flexed Trunk,Step-to Gait Factors Limiting Gait Function Factors Limiting Gait Function Decreased Strength,Limited Range of Motion,Pain,Poor Balance,Poor Safety Awareness Comments Gait Comments Pt ambulated with FWW SBA. Gait was step-to but pt was not overly limiting with LLE weightbearing. Stair Climbing Assessment Comments Stair Climbing Comments Not assessed. Pt has ramped entry at home. PT-Balance Assessment Sitting Balance and Reactions Static Sitting Balance Ability Good Dynamic Sitting Balance Ability Good Standing Balance and Reactions Static Standing Balance Ability Good Dynamic Standing Balance Ability Good Device Used FWW M5 PT-IP Objective Assessments Start: 07/23/20 13:12 Freq: NEEDED Status: Active Protocol: Document 07/23/20 13:50 AW (Rec: 07/23/20 14:06 AW [id number]) Orientation Orientation/Cognition Level of Alertness Alert Orientation Name,Day of Week,Place, Situation Language Function Ability Hard of Hearing Safety Awareness Decreased Safety Awareness Gross Range of Motion Lower Extremity ROM Assessment Left Impaired Strength Lower Extremity Strength Assessment Left Impaired Hip 4/5 Knee 3+/5 Ankle 4+/5 Comments Strength Comments RLE grossly 4+/5 Sensation Assessment Sensation Gross Sensation WNL Comments Sensation Comments Pt denied numbess. Muscle Tone Muscle Tone WNL Yes M6 PT-IP Treatment Start: 07/23/20 13:12 Freq: NEEDED Status: Active Protocol: Document 07/23/20 13:50 AW (Rec: 07/23/20 14:06 AW [id number]) Physical Therapy Treatment Exercises Exercises Ankle Pumps,Quad Sets,Heel Slides,Passive Knee Extension Hang,Seated Knee Flexion/ Extension Knee ROM Measurement 2-110 Education Education Provided Precautions,Weight Bearing Status,Post-Op Packet,Safety Other Treatments Other Treatment Performed Provided education on initial phase of rehab, plan of care, weightbearing status, and safe use of FWW. M7 PT-IP Assessment and Plan Start: 07/23/20 13:12 Freq: NEEDED Status: Active Protocol: Document 07/23/20 13:50 AW (Rec: 07/23/20 14:06 AW [id number]) PT Summary Assessment and Plan Potential Rehabilitation Potential Good Status of Condition at Evaluation Evolving Summary Impairments Pain,ROM,Strength,Balance, Transfers,Gait Assessment Summary Amy is an 85 yo woman seen for PT evaluation on POD0 following medial compartment left knee arthroplasty. She is modified independent in the community wtih SPC or FWW at baseline. She lives with her son who works full-time but she has arranged for her two daughters to stay with her at discharge so that she will have 24/7 care. On evaluation, pt required SBA to CGA for all mobilties. Daughter was able to provide appropriate level of assist during ambulation and transfers. Pt will be safe to discharge home with assist and outpatient PT once medically cleared. Goals Bed Mobility Goal Independent Transfer Goal Independent,Front Wheeled Walker Gait Goal Independent,Front Wheel Walker Gait Distance 250 Days to Meet Goals 2 Frequency of Treatment Frequency Of Treatment Twice a Day Treatment Plan Physical Therapy Treatment Plan Bed Mobility Training,Transfer Training,Gait Training, Therapeutic Exercise,Balance Retraining,Post Op Education, Discharge Planning,Hot or Cold Pack,Manual Therapy Other Recommendations and Next Treatment progress gait with FWW Focus Recommendations To Nursing Amount of Assist Needed 1 Person Assist Discharge Recommendations PT Discharge Recommendations Home with Assistance, Outpatient PT Equipment Needed for Home Before raised toilet seat Discharge Transportation Needs at Discharge Private Vehicle
== END 2020-07-23 14:23 | disposition home or self-care (01) ==
LOC: OR 09:42 → AC 10:14
PROVIDERS: Family Provider Family Medicine; PCP Family Medicine; Referring Provider Orthopaedic Surgery; Visit Provider Orthopaedic Surgery
PROC: (CPT 27446; principal; 2020-07-23 07:45)
DX: M17.12 Unilateral primary osteoarthritis, left knee (principal); G20 Parkinson's disease; I10 Essential (primary) hypertension; I25.10 Atherosclerotic heart disease of native coronary artery without angina pectoris; M79.7 Fibromyalgia
CPT/HCPCS: 27446; 97110; 97161; C1776; C9290; J0690; J2405; J2704; J3010

== ENCOUNTER → 2020-10-16 12:48 | Outpatient (CLI) | payer MEDICARE, OTHER, SELFPAY ==
[2020-07-23 10:55] VITALS: BMI 20.8
== END ==
PROVIDERS: Family Provider Family Medicine; PCP Family Medicine; Referring Provider Family Medicine; Visit Provider Family Medicine
DX: M85.852 Other specified disorders of bone density and structure, left thigh (principal); Z78.0 Asymptomatic menopausal state; Z87.891 Personal history of nicotine dependence; Z82.62 Family history of osteoporosis
CPT/HCPCS: 77080

== ENCOUNTER → 2023-10-14 12:48 | Outpatient (CLI) | payer MEDICARE, OTHER, SELFPAY ==
[2021-09-18 14:04] VITALS: BMI 20.9
--- NOTE | 2023-10-14 12:50 | DI.US.S_ITS ---
PROCEDURE: US PERIP VENOUS LOW EXTREM RT INDICATIONS: RIGHT CALF PAIN TECHNIQUE: Real-time imaging, as well as color and pulse Doppler interrogation, were performed of the lower extremity deep veins from the inguinal ligament to the popliteal fossa, with documentation of the visualized calf veins. COMPARISON: [facility], , [facility] VENOUS LOW EXTREM RT, 01/13/2023, 8:50. FINDINGS: The common femoral, femoral, popliteal, and the visualized calf veins are normally compressible, and free of intraluminal thrombus. Color and pulse Doppler demonstrate normal phasic intraluminal flow. There is normal augmentation response to distal compression maneuver. There is a 2.9 x 0.9 x 1.5 cm popliteal fossa cyst. IMPRESSION: No findings of lower extremity deep venous thrombosis. Tiwari's cyst. Dictated by: Isa Mejia M.D. on 10/14/2023 at 14:45 Approved by: Isa Mejia M.D. on 10/14/2023 at 14:46
== END ==
LOC: US 12:49
PROVIDERS: Family Provider Family Medicine; PCP Family Medicine; Referring Provider Family Medicine; Visit Provider Family Medicine
DX: M71.21 Synovial cyst of popliteal space [Baker], right knee (principal); M79.661 Pain in right lower leg
CPT/HCPCS: 93971

== ENCOUNTER → 2023-11-18 09:52 | Outpatient (CLI) | payer MEDICARE, OTHER, SELFPAY ==
[2021-09-18 14:04] VITALS: BMI 20.9
[2023-11-18 11:14] LABS: Add Manual Diff / Slide Review NO; Basophils Absolute Auto 100 /uL (0-100); Basophils Percent Auto 0.7 % (0-2); Eosinophils Absolute Auto 300 /uL (0-450); Eosinophils Percent Auto 3.4 % (2-4); Hematocrit 39.3 % (36-46); Hemoglobin 13.1 g/dL (12.0-16.0); Lymphocytes Absolute Auto 1400 /uL (1100-4500); Lymphocytes Percent Auto 17.8 % (25-40); Mean Corpuscular HGB Conc 33.4 % (30-36); Mean Corpuscular Volume 86.7 fL (80-100); Monocytes Absolute Auto 700 /uL (0-900); Monocytes Percent Auto 8.9 % (3-14); Neutrophils Absolute Auto 5400 /uL (1500-7000); Neutrophils Percent Auto 69.2 % (50-75); Platelet Count 292 X10^3/uL (150-400); Red Blood Cell Count 4.54 X10^6/uL (4.0-5.2); Red Cell Distribution Width 14.4 % (11.6-14.8); White Blood Cell Count 7.9 X10^3/uL (4.5-11.0)
[2023-11-18 11:39] LABS: Cholesterol 132 mg/dL (140-199); HDL Cholesterol 73 mg/dL (40-60); LDL Cholesterol Calculated 37 mg/dL (<100); Triglycerides 112 mg/dL (35-150); VLDL Cholesterol Calculated 22 mg/dL (2-30)
[2023-11-18 12:10] LABS: Thyroid Stimulating Hormone 1.37 uIU/mL (0.47-4.68)
== END ==
PROVIDERS: Family Provider Family Medicine; PCP Family Medicine; Referring Provider Family Medicine; Visit Provider Family Medicine
DX: E78.5 Hyperlipidemia, unspecified (principal); I10 Essential (primary) hypertension
CPT/HCPCS: 36415; 80061; 84443; 85025